=== PATIENT | male | born 1940 | race Caucasian/White ===

== ENCOUNTER 2018-12-17 21:53 | Inpatient (IN) | payer MEDICARE, MEDICAID ==
[2018-12-17] MEDS ORDERED: Sodium Chloride 0.9% 1,000 ML IV ONE (22:19)
[2018-12-17] MEDS ORDERED: Sodium Chloride 0.9% 500 ML IV ONE (22:19)
--- NOTE | 2018-12-17 22:19 | C.PDOC ---
History Of Present Illness Pt presents with 2 days of constipation, fever, chill, abdominal pain. Has seen his pmd earlier today and received a shot of levaquin in the office. Dull , aching cramping discomfort. No chest pain or shortness of breath Time Seen by Provider: 12/17/18 22:18 Chief Complaint (Nursing): Abdominal Pain History Per: Patient History/Exam Limitations: no limitations Onset/Duration Of Symptoms: Days Current Symptoms Are (Timing): Worse Context: Other Severity: Severe Pain Scale Rating Of: 7 Location Of Pain/Discomfort: Diffuse Radiation Of Pain To:: None Quality Of Discomfort: Sharp, Aching, Cramping Associated Symptoms: Fever, Chills. denies: Nausea Exacerbating Factors: Cough Alleviating Factors: None Last Bowel Movement: Days Ago Recent travel outside of the [place]: No Additional History Per: Family Past Medical History Reviewed: Historical Data, Nursing Documentation, Vital Signs Vital Signs: Last Vital Signs Temp 102.2 F H 12/17/18 22:06 Pulse 140 H 12/17/18 22:06 Resp 26 H 12/17/18 22:06 BP 129/63 12/17/18 22:06 Pulse Ox 94 L 12/17/18 22:06 Primary Care Provider: Elias Steven R - Medical History PMH: Benign Prostatic Hyperplasia (ON FLOMAX), HTN Denies: Chronic Kidney Disease Family History: States: No Known Family Hx - Social History Hx Alcohol Use: No Hx Substance Use: No - Immunization History Hx Tetanus Toxoid Vaccination: No Hx Influenza Vaccination: No Hx Pneumococcal Vaccination: No Review Of Systems Constitutional: Positive for: Fever, Chills Eyes: Negative for: Vision Change ENT: Negative for: Throat Pain Cardiovascular: Negative for: Chest Pain Respiratory: Positive for: Cough Gastrointestinal: Positive for: Abdominal Pain, Constipation. Negative for: Nausea, Vomiting Genitourinary: Negative for: Dysuria Musculoskeletal: Negative for: Back Pain Skin: Negative for: Rash Neurological: Negative for: Weakness Psych: Negative for: Anxiety Physical Exam - Physical Exam Appears: In Acute Distress Skin: Warm, Dry Head: Normacephalic Eye(s): bilateral: Normal Inspection Oral Mucosa: Dry Neck: Supple Chest: Symmetrical Cardiovascular: Rhythm Regular (tachy) Respiratory: No Rales, Rhonchi, No Wheezing Gastrointestinal/Abdominal: Bowel Sounds (tympanic), Soft, Tenderness, Distention, No Guarding, No Rebound Back: No CVA Tenderness Extremity: No Tenderness Extremity: Bilateral: Atraumatic, Normal Color And Temperature, Normal ROM Pulses: Left Dorsalis Pedis: Normal, Right Dorsalis Pedis: Normal Neurological/Psych: Oriented x3 Gait: Unable To Assess ED Course And Treatment - Laboratory Results Result Diagrams: 12/17/18 22:28 12/17/18 22:28 ECG: Interpreted By Me, Viewed By Me ECG Rhythm: Sinus Tachycardia (123), Nonspecific Changes (lvh) O2 Sat by Pulse Oximetry: 94 Pulse Ox Interpretation: Normal - Radiology CXR: Interpreted by Me, Viewed By Me CXR Interpretation: No: Infiltrates, Fracture, Pnemothorax Progress Note: 30cc/kg not given due to his chf. 1:25 am pt went to the bathroom. upon return , bp decreased. 500 cc nss bolus started. No cp or sob. Probably vaso-vagal. Awaiting ct scan results. spoke with dr burgos-bunch breaker - will come and see the pt Central Line Placement - Central Line Placement Central Line Placement: Right: Femoral The Area Was Thoroughly Prepared With: Betadine, Chlorhexidine Area Was Locally Anesthetized With: Lidocaine 1% Procedure: Triple Lumen, Placed Using Standard Seldinger Technique, Catheter Was Sewn Into Place, Sterile Dressing Placed Over Line, Procedure Tolerated Well Critical Care Time - Critical Care Note Total Time (in mins): 30 Documented critical care: time excludes all time spent performing seperately billable procedures. Disposition Discussed With : Dustin Randall Comment: accepted the pt on his service and took over the care at 2 AM Doctor Will See Patient In The: ED Counseled Patient/Family Regarding: Studies Performed, Diagnosis - Disposition Disposition: HOSPITALIZED Disposition Time: 22:18 Condition: CRITICAL Forms: [facility] (Emirati) - POA Present On Arrival: Poor Glycemic Control - Clinical Impression Clinical Impression: Abdominal pain, Constipation, Ileus, Sepsis
[2018-12-17 22:37] LABS: BASO % 0.1 % (0.0-2.0); EOS % 0.1 % (0.0-4.0); HEMOGLOBIN 13.2 g/dL (12.0-18.0); LYMPH # 1.1 K/uL (1.0-4.3); LYMPH % 5.2 % (20.0-40.0); MEAN CELL VOLUME 82.5 fL (80.0-94.0); MEAN CORPUSCULAR HEMOGLOBIN 27.1 pg (27.0-31.0); MEAN CORPUSCULAR HGB CONC 32.8 g/dL (33.0-37.0); MEAN PLATELET VOLUME 12.8 fL (7.2-11.7); MONO # 0.3 K/uL (0.0-0.8); MONO % 1.3 % (0.0-10.0); NEUT # 20.4 K/uL (1.8-7.0); NEUT % 93.3 % (50.0-75.0); NRBC % 0.1 % (0.0-2.0); PLATELET COUNT 101 K/uL (130-400); RBC 4.88 Mil/uL (4.40-5.90); RED CELL DISTRIBUTION WIDTH 13.8 % (11.5-14.5)
[2018-12-17 22:50] LABS: ALB/GLOB RATIO 1.3 (1.0-2.1); CALCIUM 10.2 mg/dl (8.6-10.4)
[2018-12-17 23:00] LABS: TROPONIN I 0.08 ng/mL (0.00-0.120)
[2018-12-17 23:04] LABS: WHITE BLOOD COUNT 21.9 K/uL (4.8-10.8)
[2018-12-17 23:23] LABS: INR 1.2; PARTIAL THROMBOPLASTIN TIME 29.6 SECONDS (21-34); PROTHROMBIN TIME 13.3 SECONDS (9.7-12.2)
[2018-12-17 23:32] LABS: BANDS 1 % (0-2); LYMPHOCYTE 4 % (20-40); MONOCYTE 1 % (0-10); NEUTROPHIL 94 % (50-75); TOTAL CELLS COUNTED 100
[2018-12-17 23:33] LABS: PLATELET ESTIMATE SLIGHTLY DECREASED (NORMAL)
[2018-12-17 23:51] LABS: VENOUS BLOOD GAS BASE EXCESS -5.3 mmol/L (0.0-2.0); VENOUS BLOOD GAS PCO2 33 mmHg (40-60); VENOUS BLOOD GAS PO2 29 mm/Hg (30-55); VENOUS BLOOD PH 7.37 (7.32-7.43)
[2018-12-18] MEDS ORDERED: Iodixanol 320 MG/ML 100 ML BOTTLE IV ONE (00:31)
[2018-12-18] MEDS ORDERED: Piperacillin/Tazobact 3.375 gm 100 ML IVPB STA (01:30)
[2018-12-18] MEDS ORDERED: Vancomycin 1 GM 1 GM/250 ML BAG IVPB STA (01:31)
[2018-12-18] MEDS ORDERED: Piperacillin/Tazobact 3.375 gm 100 ML IVPB ONE (01:40)
[2018-12-18] MEDS ORDERED: Lidocaine 2% MPF (5 ml) Inj ONE (01:46)
[2018-12-18] MEDS ORDERED: Vancomycin 1 GM 1 GM/250 ML BAG IVPB ONE (02:21)
--- NOTE | 2018-12-18 02:29 | CP.CCUPN ---
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, HTN, BPH came to ER with 2 days of constipation, fever, chill, abdominal pain, no chest pain events reviewed CCU Objective - Vital Signs / Intake & Output Vital Signs (Last 4 hours): Vital Signs Temp Pulse Resp BP Pulse Ox 12/18/18 02:04 94 L 12/18/18 01:40 97 H 18 65/29 L 95 12/17/18 23:19 98.3 F 12/17/18 23:06 98.3 F 113 H 18 130/69 98 Intake and Output (Last 8hrs): Intake & Output 12/17/18 12/17/18 12/18/18 14:59 22:59 06:59 Weight 170 lb - Physical Exam Head: Positive for: Atraumatic, Normocephalic Pupils: Positive for: PERRL Conjunctiva: Positive for: Normal Ears: Positive for: Normal Mouth: Positive for: Moist Mucous Membranes Nose (External): Positive for: Atraumatic Neck: Positive for: Normal Range of Motion Respiratory/Chest: Positive for: Clear to Auscultation Cardiovascular: Positive for: Regular Rate and Rhythm Abdomen: Positive for: Distention (soft), Other Upper Extremity: Positive for: Normal Inspection, Capillary Refill < 2s Lower Extremity: Positive for: Normal Inspection Skin: Positive for: Warm Psychiatric: Positive for: Alert - Medications Active Medications: Active Medications Generic Name Dose Route Start Last Admin Trade Name Freq PRN Reason Stop Dose Admin Vancomycin HCl 1 gm in 250 mls @ 166.667 mls/hr 12/18/18 01:31 Vancomycin 1gm In Normal Saline Addvantage IVPB 12/18/18 03:00 STAT STA Protocol Norepinephrine Bitartrate 8 mg 258 mls @ 7.74 mls/hr 12/18/18 01:39 12/18/18 01:40 / Dextrose IV 7.74 mls/hr .Q24H PRN Administration TITRATE PER MD ORDER Protocol 4 MCG/MIN - Patient Studies Lab Studies: Lab Studies 12/18/18 12/17/18 12/17/18 Range/Units 01:35 23:45 22:39 WBC (4.8-10.8) K/uL RBC (4.40-5.90) Mil/uL Hgb (12.0-18.0) g/dL Hct (35.0-51.0) % MCV (80.0-94.0) fL MCH (27.0-31.0) pg MCHC (33.0-37.0) g/dL RDW (11.5-14.5) % Plt Count (130-400) K/uL MPV (7.2-11.7) fL Neut % (Auto) (50.0-75.0) % Lymph % (Auto) (20.0-40.0) % [place] % (Auto) (0.0-10.0) % Eos % (Auto) (0.0-4.0) % Baso % (Auto) (0.0-2.0) % Neut # (Auto) (1.8-7.0) K/uL Lymph # (Auto) (1.0-4.3) K/uL [place] # (Auto) (0.0-0.8) K/uL Eos # (Auto) (0.0-0.7) K/uL Baso # (Auto) (0.0-0.2) K/uL Neutrophils % (Manual) (50-75) % Band Neutrophils % (0-2) % Lymphocytes % (Manual) (20-40) % Monocytes % (Manual) (0-10) % Platelet Estimate (NORMAL) RBC Morphology PT (9.7-12.2) SECONDS INR APTT (21-34) SECONDS pO2 29 L (30-55) mm/Hg VBG pH 7.37 (7.32-7.43) VBG pCO2 33 L (40-60) mmHg VBG HCO3 19.6 mmol/L VBG Total CO2 20.1 L (22-28) mmol/L VBG O2 Sat (Calc) 57.4 (40-65) % VBG Base Excess -5.3 L (0.0-2.0) mmol/L VBG Potassium 3.7 (3.6-5.2) mmol/L Glucose 328 H (75-110) mg/dl Lactate 5.8 H* (0.7-2.1) mmol/L Crit Value Called To Dr goodman Crit Value Called By Lev marion/rt Crit Value Read Back Y Blood Gas Notified Time 2355 Sodium 138.0 (132-148) mmol/L Potassium (3.6-5.2) mmol/L Chloride 95.0 L (98-107) mmol/L Carbon Dioxide (22-30) mmol/L Anion Gap (10-20) BUN (9-20) mg/dL Creatinine (0.8-1.5) mg/dL Est GFR ( Amer) Est GFR (Non-Af Amer) POC Glucose (mg/dL) 294 H (65-110) mg/dL Random Glucose (75-110) mg/dL Lactic Acid 3.3 H (0.7-2.1) mmol/L Calcium (8.6-10.4) mg/dl Total Bilirubin (0.2-1.3) mg/dL AST (17-59) U/L ALT (21-72) U/L Alkaline Phosphatase (38-126) U/L Troponin I (0.00-0.120) ng/mL NT-Pro-B Natriuret Pep (0-900) pg/mL Total Protein (6.3-8.3) g/dL Albumin (3.5-5.0) g/dL Globulin (2.2-3.9) gm/dL Albumin/Globulin Ratio (1.0-2.1) Lipase (23-300) U/L Venous Blood Potassium 3.7 (3.6-5.2) mmol/L 12/17/18 12/17/18 12/17/18 Range/Units 22:28 22:28 22:28 WBC 21.9 H (4.8-10.8) K/uL RBC 4.88 (4.40-5.90) Mil/uL Hgb 13.2 (12.0-18.0) g/dL Hct 40.3 (35.0-51.0) % MCV 82.5 (80.0-94.0) fL MCH 27.1 (27.0-31.0) pg MCHC 32.8 L (33.0-37.0) g/dL RDW 13.8 (11.5-14.5) % Plt Count 101 L (130-400) K/uL MPV 12.8 H (7.2-11.7) fL Neut % (Auto) 93.3 H (50.0-75.0) % Lymph % (Auto) 5.2 L (20.0-40.0) % [place] % (Auto) 1.3 (0.0-10.0) % Eos % (Auto) 0.1 (0.0-4.0) % Baso % (Auto) 0.1 (0.0-2.0) % Neut # (Auto) 20.4 H (1.8-7.0) K/uL Lymph # (Auto) 1.1 (1.0-4.3) K/uL [place] # (Auto) 0.3 (0.0-0.8) K/uL Eos # (Auto) 0.0 (0.0-0.7) K/uL Baso # (Auto) 0.0 (0.0-0.2) K/uL Neutrophils % (Manual) 94 H (50-75) % Band Neutrophils % 1 (0-2) % Lymphocytes % (Manual) 4 L (20-40) % Monocytes % (Manual) 1 (0-10) % Platelet Estimate Slightly decreased L (NORMAL) RBC Morphology Normal PT 13.3 H (9.7-12.2) SECONDS INR 1.2 APTT 29.6 (21-34) SECONDS pO2 (30-55) mm/Hg VBG pH (7.32-7.43) VBG pCO2 (40-60) mmHg VBG HCO3 mmol/L VBG Total CO2 (22-28) mmol/L VBG O2 Sat (Calc) (40-65) % VBG Base Excess (0.0-2.0) mmol/L VBG Potassium (3.6-5.2) mmol/L Glucose (75-110) mg/dl Lactate (0.7-2.1) mmol/L Crit Value Called To Crit Value Called By Crit Value Read Back Blood Gas Notified Time Sodium 134 (132-148) mmol/L Potassium 3.3 L (3.6-5.2) mmol/L Chloride 100 (98-107) mmol/L Carbon Dioxide 20 L (22-30) mmol/L Anion Gap 18 (10-20) BUN 26 H (9-20) mg/dL Creatinine 1.5 (0.8-1.5) mg/dL Est GFR ( Amer) 55 Est GFR (Non-Af Amer) 46 POC Glucose (mg/dL) (65-110) mg/dL Random Glucose 328 H (75-110) mg/dL Lactic Acid (0.7-2.1) mmol/L Calcium 10.2 (8.6-10.4) mg/dl Total Bilirubin 0.6 (0.2-1.3) mg/dL AST 44 (17-59) U/L ALT 24 (21-72) U/L Alkaline Phosphatase 150 H (38-126) U/L Troponin I 0.0800 (0.00-0.120) ng/mL NT-Pro-B Natriuret Pep 1960 H (0-900) pg/mL Total Protein 7.1 (6.3-8.3) g/dL Albumin 4.0 (3.5-5.0) g/dL Globulin 3.1 (2.2-3.9) gm/dL Albumin/Globulin Ratio 1.3 (1.0-2.1) Lipase 177 (23-300) U/L Venous Blood Potassium (3.6-5.2) mmol/L Laboratory Results - last 24 hr 12/17/18 12/17/18 12/17/18 22:28 22:28 22:28 WBC 21.9 H RBC 4.88 Hgb 13.2 Hct 40.3 MCV 82.5 MCH 27.1 MCHC 32.8 L RDW 13.8 Plt Count 101 L MPV 12.8 H Neut % (Auto) 93.3 H Lymph % (Auto) 5.2 L [place] % (Auto) 1.3 Eos % (Auto) 0.1 Baso % (Auto) 0.1 Neut # (Auto) 20.4 H Lymph # (Auto) 1.1 [place] # (Auto) 0.3 Eos # (Auto) 0.0 Baso # (Auto) 0.0 Neutrophils % (Manual) 94 H Band Neutrophils % 1 Lymphocytes % (Manual) 4 L Monocytes % (Manual) 1 Platelet Estimate Slightly decreased L RBC Morphology Normal PT 13.3 H INR 1.2 APTT 29.6 pO2 VBG pH VBG pCO2 VBG HCO3 VBG Total CO2 VBG O2 Sat (Calc) VBG Base Excess VBG Potassium Glucose Lactate Crit Value Called To Crit Value Called By Crit Value Read Back Blood Gas Notified Time Sodium 134 Potassium 3.3 L Chloride 100 Carbon Dioxide 20 L Anion Gap 18 BUN 26 H Creatinine 1.5 Est GFR ( Amer) 55 Est GFR (Non-Af Amer) 46 POC Glucose (mg/dL) Random Glucose 328 H Lactic Acid Calcium 10.2 Total Bilirubin 0.6 AST 44 ALT 24 Alkaline Phosphatase 150 H Troponin I 0.0800 NT-Pro-B Natriuret Pep 1960 H Total Protein 7.1 Albumin 4.0 Globulin 3.1 Albumin/Globulin Ratio 1.3 Lipase 177 Venous Blood Potassium 12/17/18 12/17/18 12/18/18 22:39 23:45 01:35 WBC RBC Hgb Hct MCV MCH MCHC RDW Plt Count MPV Neut % (Auto) Lymph % (Auto) [place] % (Auto) Eos % (Auto) Baso % (Auto) Neut # (Auto) Lymph # (Auto) [place] # (Auto) Eos # (Auto) Baso # (Auto) Neutrophils % (Manual) Band Neutrophils % Lymphocytes % (Manual) Monocytes % (Manual) Platelet Estimate RBC Morphology PT INR APTT pO2 29 L VBG pH 7.37 VBG pCO2 33 L VBG HCO3 19.6 VBG Total CO2 20.1 L VBG O2 Sat (Calc) 57.4 VBG Base Excess -5.3 L VBG Potassium 3.7 Glucose 328 H Lactate 5.8 H* Crit Value Called To Dr goodman Crit Value Called By Lev marion/rt Crit Value Read Back Y Blood Gas Notified Time 2357 Sodium 138.0 Potassium Chloride 95.0 L Carbon Dioxide Anion Gap BUN Creatinine Est GFR ( Amer) Est GFR (Non-Af Amer) POC Glucose (mg/dL) 294 H Random Glucose Lactic Acid 3.3 H Calcium Total Bilirubin AST ALT Alkaline Phosphatase Troponin I NT-Pro-B Natriuret Pep Total Protein Albumin Globulin Albumin/Globulin Ratio Lipase Venous Blood Potassium 3.7 EKG/Cardiology Studies: Cardiology / EKG Studies 12/17/18 22:19 ELECTROCARDIOGRAM Stat Comment: Mode Of Transportation: BED Reason For Exam: abd pain Fingerstick Blood Sugar Results: 294 Assessment/Plan - Assessment and Plan (Free Text) Assessment: A/P ?Sepsis, ilieus, h/o DM, ?CHF, BPH - Rojas culture - IV fluid - Antibiotics - Pressors as needed - GI/Surgery consult as per PND - DVT prophylaxis critical care 35 min
[2018-12-18] MEDS ORDERED: Sodium Chloride 0.9% 500 ML IV ONE (02:44)
[2018-12-18] MEDS: Piperacillin/Tazobact 3.375 GM in Sodium Chloride 100 ML IVPB SCH ×3 (03:44→18:10)
[2018-12-18] MEDS ORDERED: Sodium Chloride 0.9% 1,000 ML IV SCH (03:45)
[2018-12-18 04:18] LABS: BASO # 0.1 K/uL (0.0-0.2); BASO % 0.3 % (0.0-2.0); EOS % 0.1 % (0.0-4.0); LYMPH % 6.6 % (20.0-40.0); MEAN CELL VOLUME 84.6 fL (80.0-94.0); MEAN CORPUSCULAR HEMOGLOBIN 26.7 pg (27.0-31.0); MEAN CORPUSCULAR HGB CONC 31.5 g/dL (33.0-37.0); MEAN PLATELET VOLUME 12.1 fL (7.2-11.7); MONO # 1.4 K/uL (0.0-0.8); MONO % 4.5 % (0.0-10.0); NEUT # 26.7 K/uL (1.8-7.0); NEUT % 88.5 % (50.0-75.0); PLATELET COUNT 69 K/uL (130-400); RBC 4.09 Mil/uL (4.40-5.90); RED CELL DISTRIBUTION WIDTH 13.9 % (11.5-14.5); WHITE BLOOD COUNT 30.1 K/uL (4.8-10.8)
[2018-12-18 04:22] LABS: HEMOGLOBIN 10.9 g/dL (12.0-18.0)
[2018-12-18 04:34] LABS: ALB/GLOB RATIO 1.1 (1.0-2.1); ALBUMIN 2.7 g/dL (3.5-5.0); CALCIUM 7.7 mg/dl (8.6-10.4)
[2018-12-18] MEDS: Magnesium Sulfate 1 gm in D5W 1 GM/100 ML BAG IVPB SCH (04:52)
[2018-12-18 05:18] LABS: BANDS 3 % (0-2); LYMPHOCYTE 8 % (20-40); MONOCYTE 6 % (0-10); NEUTROPHIL 83 % (50-75); PLATELET ESTIMATE NORMAL (NORMAL); TOTAL CELLS COUNTED 100
--- NOTE | 2018-12-18 07:56 | CP.PCM.CON ---
<Elizabeth Huitron - Last Filed: 12/18/18 16:10> History of Present Illness - History of Present Illness History of Present Illness: ICU CONSULT NOTE FOR DR. FELIPE HUITRON PGY1 78 y/o M with PMHx of DM2, HTN, BPH, hypotension, osteoporosis, vertigo presented to ED from nursing home home after he had complaints of abdominal pain for several days. He reports that he had taken miralax powder and had a large bowel movement prior to arrival at ED. He also reports he has been following with ENT doctor and had received steroid injection for R ear tinnitus. He was brought to ICU after code sepsis was called in ED as pt had WBC 21, lactate 5.8 and was hypotensive requiring levophed support. He had received IVF, empiric antibiotics. Upon interview, he reports R sided "water in ear." He reports feeling fevers earlier on but denies current fevers. He reports his abdominal pain had resolved after he had miralax. He otherwise denies ROS PMH: DM2, HTN, BPH, hypotension, osteoporosis, vertigo All: NKDA PSH: b/l cataract surgery SH: Denies tobacco, ETOH, illicit drug use FH: non-contributory Hosp: Lives at [facility] Meds: Levofloxacin 250mg(R ear pain) Metformin 1000mg, Polyethylene glycol powder,, multivitamin OTC, Aspirin 81mg, Oyster Shell D Ca 500-200 IU, Amlodipine 2.5mg, Tamsulosin 0.4mg, Metoprolol succinate 50mg, Alendronate 70mg, Meclizine 12.5, Losartan/HCTZ 100-25 mg, Glimepiride 4mg Pharmacy: [facility] Review of Systems - Review of Systems Review of Systems: per HPI Past Patient History - Past Social History Smoking Status: Never Smoked - CARDIAC Hx Cardiac Disorders: Yes Hx Hypertension: Yes - PULMONARY Hx Respiratory Disorders: Yes Other/Comment: POOR HISTORIAN -"LUNG PROBLEMS " - NEUROLOGICAL Hx Neurological Disorder: No - HEENT Hx HEENT Problems: Yes Other/Comment: Eyeglasses for reading - RENAL Hx Chronic Kidney Disease: No - ENDOCRINE/METABOLIC Hx Endocrine Disorders: Yes Hx Diabetes Mellitus Type 2: Yes - HEMATOLOGICAL/ONCOLOGICAL Hx Blood Disorders: No - INTEGUMENTARY Hx Dermatological Problems: No - MUSCULOSKELETAL/RHEUMATOLOGICAL Hx Musculoskeletal Disorders: No Hx Falls: No - GASTROINTESTINAL Hx Gastrointestinal Disorders: Yes Other/Comment: TREATED FOR BOWEL OBSTRUCTION. - GENITOURINARY/GYNECOLOGICAL Hx Genitourinary Disorders: Yes Hx Prostate Problems: Yes - PSYCHIATRIC Hx Psychophysiologic Disorder: No - SURGICAL HISTORY Hx Surgeries: Yes Hx Cataract Extraction: Yes (bilateral) Hx Orthopedic Surgery: Yes (L leg) - ANESTHESIA Hx Anesthesia: Yes Hx Anesthesia Reactions: No Hx Malignant Hyperthermia: No Has any member of the family had a problem w/ anesthesia?: No Meds Allergies/Adverse Reactions: Allergies Allergy/AdvReac Type Severity Reaction Status Date / Time No Known Allergies Allergy Verified 12/17/18 22:14 - Medications Medications: Current Medications Enoxaparin Sodium (Lovenox) 40 mg SC DAILY RAJ Norepinephrine Bitartrate 8 mg (/ Dextrose) 258 mls @ 7.74 mls/hr IV .Q24H PRN; Protocol PRN Reason: TITRATE PER MD ORDER Last Titration: 12/18/18 07:41 Dose: 5 mcg/min, 9.68 mls/hr Piperacillin Sod/Tazobactam (Sod 3.375 gm/ Sodium Chloride) 100 mls @ 200 mls/hr IVPB Q8H RAJ; Protocol Last Admin: 12/18/18 03:44 Dose: Not Given Sodium Chloride (Sodium Chloride 0.9%) 1,000 mls @ 50 mls/hr IV .Q20H RAJ Last Admin: 12/18/18 04:00 Dose: 50 mls/hr Physical Exam - Constitutional Appears: Well, Non-toxic, No Acute Distress - Head Exam Head Exam: NORMAL INSPECTION, NORMOCEPHALIC - Eye Exam Eye Exam: EOMI, Normal appearance - ENT Exam ENT Exam: Mucous Membranes Dry, Normal Exam - Neck Exam Neck exam: Positive for: Normal Inspection - Respiratory Exam Respiratory Exam: Clear to Auscultation Bilateral, NORMAL BREATHING PATTERN - Cardiovascular Exam Cardiovascular Exam: REGULAR RHYTHM, +S1, +S2 - GI/Abdominal Exam GI & Abdominal Exam: Normal Bowel Sounds, Soft. absent: Distended, Firm, Guarding - Extremities Exam Extremities exam: Positive for: normal inspection. Negative for: calf tenderness - Back Exam Back exam: NORMAL INSPECTION - Neurological Exam Neurological exam: Alert, Oriented x3 - Psychiatric Exam Psychiatric exam: Normal Affect, Normal Mood - Skin Skin Exam: Dry, Intact, Warm Results - Vital Signs Recent Vital Signs: Last Vital Signs Temp 97.8 F 12/18/18 04:55 Pulse 84 12/18/18 06:15 Resp 26 H 12/18/18 06:15 BP 105/52 L 12/18/18 06:15 Pulse Ox 95 12/18/18 06:15 - Labs Result Diagrams: 12/18/18 15:00 12/18/18 04:09 Labs: Laboratory Results - last 24 hr 12/17/18 12/17/18 12/17/18 22:28 22:28 22:28 WBC 21.9 H RBC 4.88 Hgb 13.2 Hct 40.3 MCV 82.5 MCH 27.1 MCHC 32.8 L RDW 13.8 Plt Count 101 L MPV 12.8 H Neut % (Auto) 93.3 H Lymph % (Auto) 5.2 L [place] % (Auto) 1.3 Eos % (Auto) 0.1 Baso % (Auto) 0.1 Neut # (Auto) 20.4 H Lymph # (Auto) 1.1 [place] # (Auto) 0.3 Eos # (Auto) 0.0 Baso # (Auto) 0.0 Neutrophils % (Manual) 94 H Band Neutrophils % 1 Lymphocytes % (Manual) 4 L Monocytes % (Manual) 1 Platelet Estimate Slightly decreased L RBC Morphology Normal PT 13.3 H INR 1.2 APTT 29.6 pO2 VBG pH VBG pCO2 VBG HCO3 VBG Total CO2 VBG O2 Sat (Calc) VBG Base Excess VBG Potassium Glucose Lactate Crit Value Called To Crit Value Called By Crit Value Read Back Blood Gas Notified Time Sodium 134 Potassium 3.3 L Chloride 100 Carbon Dioxide 20 L Anion Gap 18 BUN 26 H Creatinine 1.5 Est GFR ( Amer) 55 Est GFR (Non-Af Amer) 46 POC Glucose (mg/dL) Random Glucose 328 H Lactic Acid Calcium 10.2 Phosphorus Magnesium Total Bilirubin 0.6 AST 44 ALT 24 Alkaline Phosphatase 150 H Troponin I 0.0800 NT-Pro-B Natriuret Pep 1960 H Total Protein 7.1 Albumin 4.0 Globulin 3.1 Albumin/Globulin Ratio 1.3 Lipase 177 Venous Blood Potassium 12/17/18 12/17/18 12/18/18 22:39 23:45 01:35 WBC RBC Hgb Hct MCV MCH MCHC RDW Plt Count MPV Neut % (Auto) Lymph % (Auto) [place] % (Auto) Eos % (Auto) Baso % (Auto) Neut # (Auto) Lymph # (Auto) [place] # (Auto) Eos # (Auto) Baso # (Auto) Neutrophils % (Manual) Band Neutrophils % Lymphocytes % (Manual) Monocytes % (Manual) Platelet Estimate RBC Morphology PT INR APTT pO2 29 L VBG pH 7.37 VBG pCO2 33 L VBG HCO3 19.6 VBG Total CO2 20.1 L VBG O2 Sat (Calc) 57.4 VBG Base Excess -5.3 L VBG Potassium 3.7 Glucose 328 H Lactate 5.8 H* Crit Value Called To Dr goodman Crit Value Called By Lev marion/rt Crit Value Read Back Y Blood Gas Notified Time 2355 Sodium 138.0 Potassium Chloride 95.0 L Carbon Dioxide Anion Gap BUN Creatinine Est GFR ( Amer) Est GFR (Non-Af Amer) POC Glucose (mg/dL) 294 H Random Glucose Lactic Acid 3.3 H Calcium Phosphorus Magnesium Total Bilirubin AST ALT Alkaline Phosphatase Troponin I NT-Pro-B Natriuret Pep Total Protein Albumin Globulin Albumin/Globulin Ratio Lipase Venous Blood Potassium 3.7 12/18/18 12/18/18 12/18/18 04:09 04:09 04:09 WBC 30.1 H RBC 4.09 L Hgb 10.9 L D Hct 34.6 L MCV 84.6 D MCH 26.7 L MCHC 31.5 L RDW 13.9 Plt Count 69 L D MPV 12.1 H Neut % (Auto) 88.5 H Lymph % (Auto) 6.6 L [place] % (Auto) 4.5 Eos % (Auto) 0.1 Baso % (Auto) 0.3 Neut # (Auto) 26.7 H Lymph # (Auto) 2.0 [place] # (Auto) 1.4 H Eos # (Auto) 0.0 Baso # (Auto) 0.1 Neutrophils % (Manual) 83 H Band Neutrophils % 3 H Lymphocytes % (Manual) 8 L Monocytes % (Manual) 6 Platelet Estimate Normal RBC Morphology PT INR APTT pO2 VBG pH VBG pCO2 VBG HCO3 VBG Total CO2 VBG O2 Sat (Calc) VBG Base Excess VBG Potassium Glucose Lactate Crit Value Called To Crit Value Called By Crit Value Read Back Blood Gas Notified Time Sodium 135 Potassium 3.8 Chloride 108 H Carbon Dioxide 19 L Anion Gap 13 BUN 24 H Creatinine 1.6 H Est GFR ( Amer) 51 Est GFR (Non-Af Amer) 42 POC Glucose (mg/dL) Random Glucose 337 H Lactic Acid 1.7 Calcium 7.7 L Phosphorus 2.3 L Magnesium 1.5 L Total Bilirubin 0.7 AST 36 ALT 40 Alkaline Phosphatase 100 Troponin I NT-Pro-B Natriuret Pep Total Protein 5.1 L Albumin 2.7 L D Globulin 2.4 Albumin/Globulin Ratio 1.1 Lipase Venous Blood Potassium Assessment & Plan - Assessment and Plan (Free Text) Assessment: 78M with PMH DM2, HTN, BPH, hypotension, osteoporosis, vertigo Plan: ID Septic shock -WBC: 30-increased from 21.9, + Temp 102.2 + hypotension requiring levophed support + Likely 2/2 UTI as source -U/A showing 3+ LE & 178 WBC in urine. Lactate downtrending 5.8 -> 3.3 -> 1.7 -Pt now afebrile. HR <90 -s/p 3L IVF bolus, 30cc/kg per surviving sepsis campaign -continue maintenance IVF @50mls/hr -continue therapeutic zosyn coverage -f/u blood/urine cultures for sensitivities, f/u procalcitonin -Pt reports passing gas and had bowel movement today. Will order stool for C.Diff R ear tinnitus -Pt has been followed by Dr. Kaufman in outpatient setting, will consult for recs -He has been receiving steroids injections, and has been tapered to oral steroids, likely contributing to leukocytosis -Recently had MRI head @[facility]. Will obtain report Neuro: -AxO x 3 -GCS 15 -Reorient frequently CV: -Currently normotensive. Was on levophed @4mcg/min overnight, not requiring vasopressor support currently -BNP 1959. CXR: revealing mild vascular congestion. Will obtain echocardiogram. Monitor for signs of fluid overload -Maintain MAP >65 GI: -No abdominal pain. Reports passing gas and stool -CT A/P 12/18: fluid filled stomach, probably mild gastroparesis. Fluid-filled colon. Likely ileus -Will start carb consistent diet Pre-renal azotemia -BUN/Cr: 24/1.6 -likely in the setting of septic shock -will continue IVF@50mls/hr Heme Thrombocytopenia -Plt 69--101 -Likely in the setting of septic shock -will treat underlying shock. repeat CBC this pm Endocrine DM2 -BS in 300s. Pt takes oral antihypoglycemics at home -Will start sliding scale insulin DVT/GI: SCD(no hep d/t thrombocytopenia)/Protonix Case reviewed with attending physician, Dr. Felipe Huitron PGY1 <Royal Wang - Last Filed: 12/18/18 18:47> Meds - Medications Medications: Current Medications Norepinephrine Bitartrate 8 mg (/ Dextrose) 258 mls @ 7.74 mls/hr IV .Q24H PRN; Protocol PRN Reason: TITRATE PER MD ORDER Last Titration: 12/18/18 10:30 Dose: 0 mcg/min, 0 mls/hr Piperacillin Sod/Tazobactam (Sod 3.375 gm/ Sodium Chloride) 100 mls @ 200 mls/hr IVPB Q8H RAJ; Protocol Last Admin: 12/18/18 18:10 Dose: 200 mls/hr Insulin Human Regular (Novolin R) 0 unit SC Q6 RAJ; Protocol Last Admin: 12/18/18 18:10 Dose: 3 u Pantoprazole Sodium (Protonix Inj) 40 mg IVP DAILY RAJ Results - Vital Signs Recent Vital Signs: Last Vital Signs Temp 97.3 F L 12/18/18 08:00 Pulse 100 H 12/18/18 17:01 Resp 11 L 12/18/18 17:01 BP 125/61 12/18/18 17:01 Pulse Ox 99 12/18/18 17:01 - Labs Result Diagrams: 12/18/18 15:00 12/18/18 04:09 Labs: Laboratory Results - last 24 hr 12/17/18 12/17/18 12/17/18 22:28 22:28 22:28 WBC 21.9 H RBC 4.88 Hgb 13.2 Hct 40.3 MCV 82.5 MCH 27.1 MCHC 32.8 L RDW 13.8 Plt Count 101 L MPV 12.8 H Neut % (Auto) 93.3 H Lymph % (Auto) 5.2 L [place] % (Auto) 1.3 Eos % (Auto) 0.1 Baso % (Auto) 0.1 Neut # (Auto) 20.4 H Lymph # (Auto) 1.1 [place] # (Auto) 0.3 Eos # (Auto) 0.0 Baso # (Auto) 0.0 Neutrophils % (Manual) 94 H Band Neutrophils % 1 Lymphocytes % (Manual) 4 L Monocytes % (Manual) 1 Platelet Estimate Slightly decreased L RBC Morphology Normal PT 13.3 H INR 1.2 APTT 29.6 pO2 VBG pH VBG pCO2 VBG HCO3 VBG Total CO2 VBG O2 Sat (Calc) VBG Base Excess VBG Potassium Glucose Lactate Crit Value Called To Crit Value Called By Crit Value Read Back Blood Gas Notified Time Sodium 134 Potassium 3.3 L Chloride 100 Carbon Dioxide 20 L Anion Gap 18 BUN 26 H Creatinine 1.5 Est GFR ( Amer) 55 Est GFR (Non-Af Amer) 46 POC Glucose (mg/dL) Random Glucose 328 H Lactic Acid Calcium 10.2 Phosphorus Magnesium Total Bilirubin 0.6 AST 44 ALT 24 Alkaline Phosphatase 150 H Troponin I 0.0800 NT-Pro-B Natriuret Pep 1960 H Total Protein 7.1 Albumin 4.0 Globulin 3.1 Albumin/Globulin Ratio 1.3 Lipase 177 Procalcitonin Venous Blood Potassium Urine Color Urine Clarity Urine pH Ur Specific [place] Urine Protein Urine Glucose (UA) Urine Ketones Urine Blood Urine Nitrate Urine Bilirubin Urine Urobilinogen Ur Leukocyte Esterase Urine WBC (Auto) Urine RBC (Auto) Ur Squamous Epith Cells Urine Bacteria 12/17/18 12/17/18 12/18/18 22:39 23:45 01:35 WBC RBC Hgb Hct MCV MCH MCHC RDW Plt Count MPV Neut % (Auto) Lymph % (Auto) [place] % (Auto) Eos % (Auto) Baso % (Auto) Neut # (Auto) Lymph # (Auto) [place] # (Auto) Eos # (Auto) Baso # (Auto) Neutrophils % (Manual) Band Neutrophils % Lymphocytes % (Manual) Monocytes % (Manual) Platelet Estimate RBC Morphology PT INR APTT pO2 29 L VBG pH 7.37 VBG pCO2 33 L VBG HCO3 19.6 VBG Total CO2 20.1 L VBG O2 Sat (Calc) 57.4 VBG Base Excess -5.3 L VBG Potassium 3.7 Glucose 328 H Lactate 5.8 H* Crit Value Called To Dr goodman Crit Value Called By Lev marion/rt Crit Value Read Back Y Blood Gas Notified Time 2355 Sodium 138.0 Potassium Chloride 95.0 L Carbon Dioxide Anion Gap BUN Creatinine Est GFR ( Amer) Est GFR (Non-Af Amer) POC Glucose (mg/dL) 294 H Random Glucose Lactic Acid 3.3 H Calcium Phosphorus Magnesium Total Bilirubin AST ALT Alkaline Phosphatase Troponin I NT-Pro-B Natriuret Pep Total Protein Albumin Globulin Albumin/Globulin Ratio Lipase Procalcitonin Venous Blood Potassium 3.7 Urine Color Urine Clarity Urine pH Ur Specific [place] Urine Protein Urine Glucose (UA) Urine Ketones Urine Blood Urine Nitrate Urine Bilirubin Urine Urobilinogen Ur Leukocyte Esterase Urine WBC (Auto) Urine RBC (Auto) Ur Squamous Epith Cells Urine Bacteria 12/18/18 12/18/18 12/18/18 04:09 04:09 04:09 WBC 30.1 H RBC 4.09 L Hgb 10.9 L D Hct 34.6 L MCV 84.6 D MCH 26.7 L MCHC 31.5 L RDW 13.9 Plt Count 69 L D MPV 12.1 H Neut % (Auto) 88.5 H Lymph % (Auto) 6.6 L [place] % (Auto) 4.5 Eos % (Auto) 0.1 Baso % (Auto) 0.3 Neut # (Auto) 26.7 H Lymph # (Auto) 2.0 [place] # (Auto) 1.4 H Eos # (Auto) 0.0 Baso # (Auto) 0.1 Neutrophils % (Manual) 83 H Band Neutrophils % 3 H Lymphocytes % (Manual) 8 L Monocytes % (Manual) 6 Platelet Estimate Normal RBC Morphology PT INR APTT pO2 VBG pH VBG pCO2 VBG HCO3 VBG Total CO2 VBG O2 Sat (Calc) VBG Base Excess VBG Potassium Glucose Lactate Crit Value Called To Crit Value Called By Crit Value Read Back Blood Gas Notified Time Sodium 135 Potassium 3.8 Chloride 108 H Carbon Dioxide 19 L Anion Gap 13 BUN 24 H Creatinine 1.6 H Est GFR ( Amer) 51 Est GFR (Non-Af Amer) 42 POC Glucose (mg/dL) Random Glucose 337 H Lactic Acid 1.7 Calcium 7.7 L Phosphorus 2.3 L Magnesium 1.5 L Total Bilirubin 0.7 AST 36 ALT 40 Alkaline Phosphatase 100 Troponin I NT-Pro-B Natriuret Pep Total Protein 5.1 L Albumin 2.7 L D Globulin 2.4 Albumin/Globulin Ratio 1.1 Lipase Procalcitonin Venous Blood Potassium Urine Color Urine Clarity Urine pH Ur Specific [place] Urine Protein Urine Glucose (UA) Urine Ketones Urine Blood Urine Nitrate Urine Bilirubin Urine Urobilinogen Ur Leukocyte Esterase Urine WBC (Auto) Urine RBC (Auto) Ur Squamous Epith Cells Urine Bacteria 12/18/18 12/18/18 12/18/18 09:21 10:53 15:00 WBC 19.2 H RBC 3.83 L Hgb 10.6 L Hct 31.9 L MCV 83.3 MCH 27.7 MCHC 33.3 RDW 13.8 Plt Count 70 L MPV 12.6 H Neut % (Auto) 89.1 H Lymph % (Auto) 7.5 L [place] % (Auto) 3.0 Eos % (Auto) 0.2 Baso % (Auto) 0.2 Neut # (Auto) 17.1 H Lymph # (Auto) 1.4 [place] # (Auto) 0.6 Eos # (Auto) 0.0 Baso # (Auto) 0.0 Neutrophils % (Manual) 94 H Band Neutrophils % Lymphocytes % (Manual) 3 L Monocytes % (Manual) 3 Platelet Estimate Decreased L RBC Morphology Normal PT INR APTT pO2 VBG pH VBG pCO2 VBG HCO3 VBG Total CO2 VBG O2 Sat (Calc) VBG Base Excess VBG Potassium Glucose Lactate Crit Value Called To Crit Value Called By Crit Value Read Back Blood Gas Notified Time Sodium Potassium Chloride Carbon Dioxide Anion Gap BUN Creatinine Est GFR ( Amer) Est GFR (Non-Af Amer) POC Glucose (mg/dL) Random Glucose Lactic Acid Calcium Phosphorus Magnesium Total Bilirubin AST ALT Alkaline Phosphatase Troponin I NT-Pro-B Natriuret Pep Total Protein Albumin Globulin Albumin/Globulin Ratio Lipase Procalcitonin 18.14 H Venous Blood Potassium Urine Color Yellow Urine Clarity Hazy Urine pH 5.0 Ur Specific [place] 1.038 H Urine Protein Negative Urine Glucose (UA) 3+ H Urine Ketones Negative Urine Blood 2+ H Urine Nitrate Negative Urine Bilirubin Negative Urine Urobilinogen Normal Ur Leukocyte Esterase 3+ H Urine WBC (Auto) 178 H Urine RBC (Auto) 58 H Ur Squamous Epith Cells 1 Urine Bacteria Rare Attending/Attestation - Attestation I have personally seen and examined this patient.: Yes I have fully participated in the care of the patient.: Yes I have reviewed all pertinent clinical information: Yes Notes (Text): 12/18/18 18:45 Patient seen and examined in the intensive care unit. Case discussed with housestaff in the morning rounds. 78-year-old male admitted with hypotension, abdominal pain and elevated lactate level Off pressors now and right femoral catheter removed Blood culture positive for gram positive bacilli Continue Zosyn and patient received vancomycin Seen by ENT and patient had MRI done yesterday at [facility] Glycemic control Follow-up lactate level
[2018-12-18 09:31] LABS: SQUAMOUS EPITHIAL 1 /hpf (0-5); URINE BACTERIA RARE (<OCC); URINE BILIRUBIN NEGATIVE (NEGATIVE); URINE BLOOD 2+ (NEGATIVE); URINE CLARITY Hazy (Clear); URINE COLOR Yellow (YELLOW); URINE GLUCOSE (UA) 3+ mg/dL (Normal); URINE LEUKOCYTE ESTERASE 3+ Leu/uL (Negative); URINE PROTEIN NEGATIVE (NEGATIVE); URINE UROBILINOGEN NORMAL mg/dL (0.2-1.0)
[2018-12-18] MEDS ORDERED: Enoxaparin 40 mg Syringe SC SCH (10:00)
--- NOTE | 2018-12-18 10:57 | RAD ---
Date of service: 12/17/2018 HISTORY: Abdominal pain. COMPARISON: 11/15/2013 TECHNIQUE: 1 view obtained. FINDINGS: LUNGS: Mild venous congestion. Biapical pleural thickening with upper lobe granulomatous changes. Bilateral hilar prominence. Mild patchy increased markings at the left lung base with trace left pleural effusion. PLEURA: As above. CARDIOVASCULAR: Tortuous ectatic aorta with calcification at the aortic knob. Normal cardiac size. No pulmonary vascular congestion. OSSEOUS STRUCTURES: No significant abnormalities. VISUALIZED UPPER ABDOMEN: Normal. OTHER FINDINGS: None. IMPRESSION: Mild venous congestion. Biapical pleural thickening with upper lobe granulomatous changes. Bilateral hilar prominence. Mild patchy increased markings at the left lung base with trace left pleural effusion.
[2018-12-18] MEDS ORDERED: Potassium Phosphate 15 MMOLE in Sodium Chloride 0.9% 250 ML IVPB ONE (11:00)
[2018-12-18] MEDS: (Novolin R) Insulin Human Regular 100 units/ml vial SC SCH ×2 (13:31→18:10)
--- NOTE | 2018-12-18 13:35 | CT ---
Date of service: 12/18/2018 PROCEDURE: CT Abdomen and Pelvis with contrast HISTORY: abd pain COMPARISON: None available TECHNIQUE: Contrast dose: 100 mL Visipaque 320 IV Radiation dose: Total exam DLP = 824.95 mGy-cm. This CT exam was performed using one or more of the following dose reduction techniques: Automated exposure control, adjustment of the mA and/or kV according to patient size, and/or use of iterative reconstruction technique. FINDINGS: LOWER THORAX: Bibasilar atelectasis/infiltrates. No visible pleural effusion or pneumothorax. Partially imaged cardiomegaly. Small hiatal hernia/distal esophageal wall thickening. LIVER: 7 mm right hepatic lobe hypodensity, too small to characterize. Hepatomegaly. GALLBLADDER AND BILE DUCTS: Tiny calcified gallstone. PANCREAS: Unremarkable. SPLEEN: Unremarkable. ADRENALS: Unremarkable. KIDNEYS AND URETERS: The kidneys enhance symmetrically. No hydronephrosis or obstructing calculus identified. 7 mm in 10 mm left renal hypodensities, likely cysts. 19 mm right lower pole renal hypodensity measures less than 10 Hounsfield units consistent with a cyst. VASCULATURE: No aortic aneurysm. Atherosclerotic calcifications present. BOWEL: Stomach is nondistended. Lack of oral contrast limits evaluation for bowel pathology. Bowel loops appear within normal limits of caliber without evidence of obstruction. Nondistended fluid-filled loops of small and large bowel; correlate clinically for diarrheal illness. Nonspecific wall thickening of small bowel loops in the left upper quadrant; correlate clinically for possibility of ileitis. APPENDIX: The appendix is not identified. No secondary signs of acute appendicitis. PERITONEUM: No significant free fluid. No definite free air. LYMPH NODES: No bulky adenopathy identified. BLADDER: Mild diffuse urinary bladder wall thickening. REPRODUCTIVE: The prostate gland measures approximately 4.3 x 5.2 cm and contains calcifications. BONES: Osseous demineralization. Degenerative changes. OTHER FINDINGS: None. IMPRESSION: Bibasilar atelectasis/infiltrates. Partially imaged cardiomegaly. Small hiatal hernia/distal esophageal wall thickening. Too small to characterize right hepatic lobe hypodensity; statistically likely cyst or hemangioma. Hepatomegaly. Tiny calcified gallstone. Bilateral probable renal cysts. Nondistended fluid-filled loops of small and large bowel; correlate clinically for diarrheal illness. Nonspecific wall thickening of small bowel loops in the left upper quadrant; correlate clinically for possibility of ileitis. Enlarged prostate gland which contains calcifications; recommend correlation with PSA. Mild diffuse urinary bladder wall thickening may be exaggerated by under distension; recommend correlation with urinalysis. Preliminary impression was provided by [employer].
[2018-12-18 15:04] LABS: BASO % 0.2 % (0.0-2.0); EOS % 0.2 % (0.0-4.0); HEMOGLOBIN 10.6 g/dL (12.0-18.0); LYMPH # 1.4 K/uL (1.0-4.3); LYMPH % 7.5 % (20.0-40.0); MEAN CELL VOLUME 83.3 fL (80.0-94.0); MEAN CORPUSCULAR HEMOGLOBIN 27.7 pg (27.0-31.0); MEAN CORPUSCULAR HGB CONC 33.3 g/dL (33.0-37.0); MEAN PLATELET VOLUME 12.6 fL (7.2-11.7); MONO # 0.6 K/uL (0.0-0.8); NEUT # 17.1 K/uL (1.8-7.0); NEUT % 89.1 % (50.0-75.0); RBC 3.83 Mil/uL (4.40-5.90); RED CELL DISTRIBUTION WIDTH 13.8 % (11.5-14.5); WHITE BLOOD COUNT 19.2 K/uL (4.8-10.8)
[2018-12-18 15:15] LABS: PLATELET COUNT 70 K/uL (130-400)
[2018-12-18 16:17] LABS: LYMPHOCYTE 3 % (20-40); MONOCYTE 3 % (0-10); NEUTROPHIL 94 % (50-75); TOTAL CELLS COUNTED 100
[2018-12-18 16:18] LABS: PLATELET ESTIMATE DECREASED (NORMAL)
--- NOTE | 2018-12-18 16:55 | CP.PCM.HP ---
History of Present Illness - History of Present Illness History of Present Illness: A 78-year-old male patient presents with 2 days of constipation, fever, chills, abdominal pain.he was received a shot of Levaquin in the office.abdominal pain is dull, aching, cramping.pain is 7 out of 10.diffuse pain.exacerbated by co ugh.last bowel movement was days ago.also have a cough.past medical history of BPH, hypertension.no history of present changes, chest pain, nausea, vomiting.no history of dysuria, back pain, rash, weakness, anxiety. Past Medical History Reviewed: Historical Data, Nursing Documentation, Vital Signs Vital Signs: Last Vital Signs Temp 102.2 F H 12/17/18 22:06 Pulse 140 H 12/17/18 22:06 Resp 26 H 12/17/18 22:06 BP 129/63 12/17/18 22:06 Pulse Ox 94 L 12/17/18 22:06 - Medical History PMH: Benign Prostatic Hyperplasia (ON FLOMAX), HTN Denies: Chronic Kidney Disease Family History: States: No Known Family Hx - Social History Hx Alcohol Use: No Hx Substance Use: No - Immunization History Hx Tetanus Toxoid Vaccination: No Hx Influenza Vaccination: No Hx Pneumococcal Vaccination: No Review Of Systems Constitutional: Positive for: Fever, Chills Eyes: Negative for: Vision Change ENT: Negative for: Throat Pain Cardiovascular: Negative for: Chest Pain Respiratory: Positive for: Cough Gastrointestinal: Positive for: Abdominal Pain, Constipation. Negative for: Nausea, Vomiting Genitourinary: Negative for: Dysuria Musculoskeletal: Negative for: Back Pain Skin: Negative for: Rash Neurological: Negative for: Weakness Psych: Negative for: Anxiety Past Patient History - Past Social History Smoking Status: Never Smoked - CARDIAC Hx Cardiac Disorders: Yes Hx Hypertension: Yes - PULMONARY Hx Respiratory Disorders: Yes Other/Comment: POOR HISTORIAN -"LUNG PROBLEMS " - NEUROLOGICAL Hx Neurological Disorder: No - HEENT Hx HEENT Problems: Yes Other/Comment: Eyeglasses for reading - RENAL Hx Chronic Kidney Disease: No - ENDOCRINE/METABOLIC Hx Endocrine Disorders: Yes Hx Diabetes Mellitus Type 2: Yes - HEMATOLOGICAL/ONCOLOGICAL Hx Blood Disorders: No - INTEGUMENTARY Hx Dermatological Problems: No - MUSCULOSKELETAL/RHEUMATOLOGICAL Hx Musculoskeletal Disorders: No Hx Falls: No - GASTROINTESTINAL Hx Gastrointestinal Disorders: Yes Other/Comment: TREATED FOR BOWEL OBSTRUCTION. - GENITOURINARY/GYNECOLOGICAL Hx Genitourinary Disorders: Yes Hx Prostate Problems: Yes - PSYCHIATRIC Hx Psychophysiologic Disorder: No - SURGICAL HISTORY Hx Surgeries: Yes Hx Cataract Extraction: Yes (bilateral) Hx Orthopedic Surgery: Yes (L leg) - ANESTHESIA Hx Anesthesia: Yes Hx Anesthesia Reactions: No Hx Malignant Hyperthermia: No Has any member of the family had a problem w/ anesthesia?: No Meds Allergies/Adverse Reactions: Allergies Allergy/AdvReac Type Severity Reaction Status Date / Time No Known Allergies Allergy Verified 12/17/18 22:14 Physical Exam - Constitutional Appears: Well - Head Exam Head Exam: ATRAUMATIC, NORMAL INSPECTION, NORMOCEPHALIC - Eye Exam Eye Exam: EOMI, Normal appearance, PERRL Pupil Exam: NORMAL ACCOMODATION, PERRL - ENT Exam ENT Exam: Mucous Membranes Moist, Normal Exam - Neck Exam Neck exam: Positive for: Normal Inspection - Respiratory Exam Respiratory Exam: Decreased Breath Sounds - Cardiovascular Exam Cardiovascular Exam: REGULAR RHYTHM, +S1, +S2 - GI/Abdominal Exam GI & Abdominal Exam: Diminished Bowel Sounds, Soft - Rectal Exam Rectal Exam: Deferred - Neurological Exam Neurological exam: Oriented x3 Results - Vital Signs Recent Vital Signs: Last Vital Signs Temp 97.3 F L 12/18/18 08:00 Pulse 96 H 12/18/18 13:02 Resp 21 12/18/18 13:02 BP 95/42 L 12/18/18 13:02 Pulse Ox 100 12/18/18 13:02 - Labs Result Diagrams: 12/20/18 05:51 12/20/18 05:48 Labs: Laboratory Results - last 24 hr 12/17/18 12/17/18 12/17/18 22:28 22:28 22:28 WBC 21.9 H RBC 4.88 Hgb 13.2 Hct 40.3 MCV 82.5 MCH 27.1 MCHC 32.8 L RDW 13.8 Plt Count 101 L MPV 12.8 H Neut % (Auto) 93.3 H Lymph % (Auto) 5.2 L Garden % (Auto) 1.3 Eos % (Auto) 0.1 Baso % (Auto) 0.1 Neut # (Auto) 20.4 H Lymph # (Auto) 1.1 Garden # (Auto) 0.3 Eos # (Auto) 0.0 Baso # (Auto) 0.0 Neutrophils % (Manual) 94 H Band Neutrophils % 1 Lymphocytes % (Manual) 4 L Monocytes % (Manual) 1 Platelet Estimate Slightly decreased L RBC Morphology Normal PT 13.3 H INR 1.2 APTT 29.6 pO2 VBG pH VBG pCO2 VBG HCO3 VBG Total CO2 VBG O2 Sat (Calc) VBG Base Excess VBG Potassium Glucose Lactate Crit Value Called To Crit Value Called By Crit Value Read Back Blood Gas Notified Time Sodium 134 Potassium 3.3 L Chloride 100 Carbon Dioxide 20 L Anion Gap 18 BUN 26 H Creatinine 1.5 Est GFR ( Amer) 55 Est GFR (Non-Af Amer) 46 POC Glucose (mg/dL) Random Glucose 328 H Lactic Acid Calcium 10.2 Phosphorus Magnesium Total Bilirubin 0.6 AST 44 ALT 24 Alkaline Phosphatase 150 H Troponin I 0.0800 NT-Pro-B Natriuret Pep 1960 H Total Protein 7.1 Albumin 4.0 Globulin 3.1 Albumin/Globulin Ratio 1.3 Lipase 177 Procalcitonin Venous Blood Potassium Urine Color Urine Clarity Urine pH Ur Specific Grundy Urine Protein Urine Glucose (UA) Urine Ketones Urine Blood Urine Nitrate Urine Bilirubin Urine Urobilinogen Ur Leukocyte Esterase Urine WBC (Auto) Urine RBC (Auto) Ur Squamous Epith Cells Urine Bacteria 12/17/18 12/17/18 12/18/18 22:39 23:45 01:35 WBC RBC Hgb Hct MCV MCH MCHC RDW Plt Count MPV Neut % (Auto) Lymph % (Auto) Garden % (Auto) Eos % (Auto) Baso % (Auto) Neut # (Auto) Lymph # (Auto) Garden # (Auto) Eos # (Auto) Baso # (Auto) Neutrophils % (Manual) Band Neutrophils % Lymphocytes % (Manual) Monocytes % (Manual) Platelet Estimate RBC Morphology PT INR APTT pO2 29 L VBG pH 7.37 VBG pCO2 33 L VBG HCO3 19.6 VBG Total CO2 20.1 L VBG O2 Sat (Calc) 57.4 VBG Base Excess -5.3 L VBG Potassium 3.7 Glucose 328 H Lactate 5.8 H* Crit Value Called To Dr goodman Crit Value Called By Lev marion/rt Crit Value Read Back Y Blood Gas Notified Time 2355 Sodium 138.0 Potassium Chloride 95.0 L Carbon Dioxide Anion Gap BUN Creatinine Est GFR ( Amer) Est GFR (Non-Af Amer) POC Glucose (mg/dL) 294 H Random Glucose Lactic Acid 3.3 H Calcium Phosphorus Magnesium Total Bilirubin AST ALT Alkaline Phosphatase Troponin I NT-Pro-B Natriuret Pep Total Protein Albumin Globulin Albumin/Globulin Ratio Lipase Procalcitonin Venous Blood Potassium 3.7 Urine Color Urine Clarity Urine pH Ur Specific Grundy Urine Protein Urine Glucose (UA) Urine Ketones Urine Blood Urine Nitrate Urine Bilirubin Urine Urobilinogen Ur Leukocyte Esterase Urine WBC (Auto) Urine RBC (Auto) Ur Squamous Epith Cells Urine Bacteria 12/18/18 12/18/18 12/18/18 04:09 04:09 04:09 WBC 30.1 H RBC 4.09 L Hgb 10.9 L D Hct 34.6 L MCV 84.6 D MCH 26.7 L MCHC 31.5 L RDW 13.9 Plt Count 69 L D MPV 12.1 H Neut % (Auto) 88.5 H Lymph % (Auto) 6.6 L Garden % (Auto) 4.5 Eos % (Auto) 0.1 Baso % (Auto) 0.3 Neut # (Auto) 26.7 H Lymph # (Auto) 2.0 Garden # (Auto) 1.4 H Eos # (Auto) 0.0 Baso # (Auto) 0.1 Neutrophils % (Manual) 83 H Band Neutrophils % 3 H Lymphocytes % (Manual) 8 L Monocytes % (Manual) 6 Platelet Estimate Normal RBC Morphology PT INR APTT pO2 VBG pH VBG pCO2 VBG HCO3 VBG Total CO2 VBG O2 Sat (Calc) VBG Base Excess VBG Potassium Glucose Lactate Crit Value Called To Crit Value Called By Crit Value Read Back Blood Gas Notified Time Sodium 135 Potassium 3.8 Chloride 108 H Carbon Dioxide 19 L Anion Gap 13 BUN 24 H Creatinine 1.6 H Est GFR ( Amer) 51 Est GFR (Non-Af Amer) 42 POC Glucose (mg/dL) Random Glucose 337 H Lactic Acid 1.7 Calcium 7.7 L Phosphorus 2.3 L Magnesium 1.5 L Total Bilirubin 0.7 AST 36 ALT 40 Alkaline Phosphatase 100 Troponin I NT-Pro-B Natriuret Pep Total Protein 5.1 L Albumin 2.7 L D Globulin 2.4 Albumin/Globulin Ratio 1.1 Lipase Procalcitonin Venous Blood Potassium Urine Color Urine Clarity Urine pH Ur Specific Grundy Urine Protein Urine Glucose (UA) Urine Ketones Urine Blood Urine Nitrate Urine Bilirubin Urine Urobilinogen Ur Leukocyte Esterase Urine WBC (Auto) Urine RBC (Auto) Ur Squamous Epith Cells Urine Bacteria 12/18/18 12/18/18 12/18/18 09:21 10:53 15:00 WBC 19.2 H RBC 3.83 L Hgb 10.6 L Hct 31.9 L MCV 83.3 MCH 27.7 MCHC 33.3 RDW 13.8 Plt Count 70 L MPV 12.6 H Neut % (Auto) 89.1 H Lymph % (Auto) 7.5 L Garden % (Auto) 3.0 Eos % (Auto) 0.2 Baso % (Auto) 0.2 Neut # (Auto) 17.1 H Lymph # (Auto) 1.4 Garden # (Auto) 0.6 Eos # (Auto) 0.0 Baso # (Auto) 0.0 Neutrophils % (Manual) 94 H Band Neutrophils % Lymphocytes % (Manual) 3 L Monocytes % (Manual) 3 Platelet Estimate Decreased L RBC Morphology Normal PT INR APTT pO2 VBG pH VBG pCO2 VBG HCO3 VBG Total CO2 VBG O2 Sat (Calc) VBG Base Excess VBG Potassium Glucose Lactate Crit Value Called To Crit Value Called By Crit Value Read Back Blood Gas Notified Time Sodium Potassium Chloride Carbon Dioxide Anion Gap BUN Creatinine Est GFR ( Amer) Est GFR (Non-Af Amer) POC Glucose (mg/dL) Random Glucose Lactic Acid Calcium Phosphorus Magnesium Total Bilirubin AST ALT Alkaline Phosphatase Troponin I NT-Pro-B Natriuret Pep Total Protein Albumin Globulin Albumin/Globulin Ratio Lipase Procalcitonin 18.14 H Venous Blood Potassium Urine Color Yellow Urine Clarity Hazy Urine pH 5.0 Ur Specific Grundy 1.038 H Urine Protein Negative Urine Glucose (UA) 3+ H Urine Ketones Negative Urine Blood 2+ H Urine Nitrate Negative Urine Bilirubin Negative Urine Urobilinogen Normal Ur Leukocyte Esterase 3+ H Urine WBC (Auto) 178 H Urine RBC (Auto) 58 H Ur Squamous Epith Cells 1 Urine Bacteria Rare Assessment & Plan - Assessment and Plan (Free Text) Assessment: Plan WBC 21.9 Hemoglobin 13.2 Hematocrit 40.3 Platelets 101 Sodium 134 Potassium 3.3 Bicarbonate 20 BUN 26 Creatinine 1.5 Glucose 328 ECGsinus tachycardia, nonspecific changes O2 saturation 94 Chest x-rayno infiltrates, fracture, pneumothorax Moderate to high complexity of care. Plan of care discussed with patient &/or family & staff. Medications reviewed and reconciled. Labs reviewed. Vitals reviewed.
--- NOTE | 2018-12-18 17:49 | CARD ---
APPROVED REPORT Date of service: 12/18/2018 EXAM: Two-dimensional and M-mode echocardiogram with Doppler and color Doppler. Other Information Quality : GoodRhythm : RISK FACTORS Hypertension Hyperlipidemia Diabetes 2D DIMENSIONS IVSd1.0 (0.7-1.1cm)LVDd4.6 (3.9-5.9cm) PWd0.9 (0.7-1.1cm)LA [id number] (18-58mL) LVDs3.0 (2.5-4.0cm)FS (%) 36.1 % LVEF (%)65.8 (>50%)LVEF (Nicholson's)69.04 % M-Mode DIMENSIONS Left Atrium (MM)2.54 (2.5-4.0cm)IVSd0.76 (0.7-1.1cm) Aortic Root3.67 (2.2-3.7cm)LVDd5.23 (4.0-5.6cm) Aortic Cusp Exc.2.12 (1.5-2.0cm)PWd0.81 (0.7-1.1cm) FS (%) 37 %LVDs3.27 (2.0-3.8cm) LVEF (%)67 (>50%) Aortic Valve AI P 1/2 [id number] Mitral Valve MV E Nfjpfmvk77.8cm/sMV A Uyacrico58.7cm/sE/A ratio0.9 TDI Lateral E' Peak V9.38cm/sMedial E' Peak V6.80cm/sE/Lateral E'9.9 E/Medial E'13.6 Tricuspid Valve TR Peak [id number]/sTR Peak Gr.[id number] LEFT VENTRICLE The left ventricle is normal size. There is normal left ventricular wall thickness. The left ventricular function is normal. The left ventricular ejection fraction is within the normal range. There is normal LV segmental wall motion. Transmitral Doppler flow pattern is abnormal. RIGHT VENTRICLE The right ventricle is normal size. ATRIA The left atrium size is normal. The right atrium size is normal. AORTIC VALVE There is mild aortic regurgitation. MITRAL VALVE Mitral regurgitation is mild. TRICUSPID VALVE There is mild to moderate tricuspid regurgitation. <Conclusion> Normal LV systolic function. Normal chamber size. Mild AR. Mild MR. Mild to moderate TR.
--- NOTE | 2018-12-18 19:52 | CON ---
DATE: 12/18/2018 REASON FOR CONSULTATION: Hearing loss and ringing. HISTORY OF PRESENT ILLNESS: This is a 78-year-old male who is know to me, has had ringing and hearing loss in his right ear for two weeks, it is constant, mild to moderate in intensity, he has hearing loss and the ringing is on and off mild to moderate in intensity. He had pain previously when he presented to the office; however, the pain has resolved that was in his right ear. PAST MEDICAL HISTORY: As noted in chart by me. MEDICATIONS: As noted in chart by me. ALLERGIES: NOTED IN THE CHART BY ME. PHYSICAL EXAMINATION: HEAD: Atraumatic and normocephalic. FACE: Good facial movements bilaterally. CONSTITUTIONAL: Well fed, well nourished. COMMUNICATION: Communicates well and appropriately. EXTERNAL NOSE AND EARS: No masses, no lesions, no erythema, no edema. INTERNAL NOSE: Deviated septum. No masses, no lesions, no erythema, no edema. EARS: TM intact with no fluid behind it. ORAL CAVITY AND OROPHARYNX: No masses. No lesions. No erythema. No edema. LIPS AND GUMS: No masses. No lesions. No erythema. No edema. NECK: Supple. THYROID: No thyromegaly. No goiter. LYMPH NODES: No lymphadenopathy of the neck. ASSESSMENT: 1. Sensorineural hearing loss, right. 2. Right tinnitus. 3. Right ear pain resolved. 4. Deviated septum. PLAN: The patient has already completed his course of steroid and may qualify for intratympanic steroid injections. He already had his MRI done yesterday. The patient is to follow up in the office as soon as he leaves the hospital for possible intratympanic steroid injections. Roni Kaufman MD [facility]
[2018-12-19] MEDS: (Novolin R) Insulin Human Regular 100 units/ml vial SC SCH ×5 (01:14→21:29)
[2018-12-19] MEDS: Piperacillin/Tazobact 3.375 GM in Sodium Chloride 100 ML IVPB SCH ×3 (03:06→18:06)
[2018-12-19 06:21] LABS: BASO % 0.2 % (0.0-2.0); EOS # 0.1 K/uL (0.0-0.7); EOS % 0.5 % (0.0-4.0); HEMOGLOBIN 10.2 g/dL (12.0-18.0); LYMPH # 1.8 K/uL (1.0-4.3); LYMPH % 11.4 % (20.0-40.0); MEAN CELL VOLUME 84.1 fL (80.0-94.0); MEAN CORPUSCULAR HEMOGLOBIN 27.2 pg (27.0-31.0); MEAN CORPUSCULAR HGB CONC 32.4 g/dL (33.0-37.0); MEAN PLATELET VOLUME 11.5 fL (7.2-11.7); MONO % 6.4 % (0.0-10.0); NEUT # 12.7 K/uL (1.8-7.0); NEUT % 81.5 % (50.0-75.0); RBC 3.76 Mil/uL (4.40-5.90); WHITE BLOOD COUNT 15.6 K/uL (4.8-10.8)
[2018-12-19 06:29] LABS: ALB/GLOB RATIO 1.1 (1.0-2.1); ALBUMIN 2.9 g/dL (3.5-5.0); ALT/SGPT 29 U/L (21-72); AST/SGOT 39 U/L (17-59); BLOOD UREA NITROGEN 15 mg/dL (9-20); CALCIUM 7.3 mg/dl (8.6-10.4); GFR NON-AFRICAN AMERICAN 59
[2018-12-19] MEDS ORDERED: Potassium & Sodium Phosphate PO STA (08:30)
[2018-12-19] MEDS ORDERED: metroNIDAZOLE IV 500 mg/100 ml 500 MG/100 ML BAG IVPB ONE (10:30)
--- NOTE | 2018-12-19 11:14 | CP.CCUPN ---
<Elizabeth Huitron - Last Filed: 12/19/18 13:12> CCU Subjective - Physician Review Subjective (Free Text): ICU PROGRESS NOTE FOR DR. FELIPE Huitron PGY1 Pt seen and examined at bedside this am. Had Tmax 101.6 overnight. Denying complaints today CCU Objective - Vital Signs / Intake & Output Vital Signs (Last 4 hours): Vital Signs Temp Pulse Resp BP Pulse Ox 12/19/18 10:00 90 14 100 12/19/18 09:01 94 H 26 H 152/81 H 98 12/19/18 09:00 95 H 14 97 12/19/18 08:01 81 19 143/73 100 12/19/18 08:00 81 18 100 12/19/18 07:54 97.5 F L Intake and Output (Last 8hrs): Intake & Output 12/18/18 12/19/18 12/19/18 22:59 06:59 14:59 Intake Total 500 400 390 Output Total 750 900 Balance -250 -500 390 Intake: Intake, IV Amount 500 400 150 Right Hand 500 400 150 Oral 240 Output: Urine 750 900 Urine, Voided 750 900 Other: # Voids Urine, Voided 1 1 # Bowel Movements 1 - Physical Exam Head: Positive for: Atraumatic, Normocephalic Pupils: Positive for: PERRL Conjunctiva: Positive for: Normal Ears: Positive for: Normal Mouth: Positive for: Moist Mucous Membranes Nose (External): Positive for: Atraumatic Neck: Positive for: Normal Range of Motion Respiratory/Chest: Positive for: Clear to Auscultation Cardiovascular: Positive for: Regular Rate and Rhythm Abdomen: Positive for: Distention (soft), Other Upper Extremity: Positive for: Normal Inspection, Capillary Refill < 2s Lower Extremity: Positive for: Normal Inspection Skin: Positive for: Warm Psychiatric: Positive for: Alert - Medications Active Medications: Active Medications Generic Name Dose Route Start Last Admin Trade Name Freq PRN Reason Stop Dose Admin Acetaminophen 650 mg 12/19/18 01:38 12/19/18 02:00 Tylenol 325mg Tab PO 650 mg Q6 PRN Administration Fever >100.4 F Norepinephrine Bitartrate 8 mg 258 mls @ 7.74 mls/hr 12/18/18 01:39 12/18/18 10:30 / Dextrose IV 0 mcg/min .Q24H PRN 0 mls/hr TITRATE PER MD ORDER Titration Protocol 4 MCG/MIN Piperacillin Sod/Tazobactam 100 mls @ 200 mls/hr 12/18/18 02:45 12/19/18 10:12 Sod 3.375 gm/ Sodium Chloride IVPB 200 mls/hr Q8H RAJ Administration Protocol Metronidazole 500 mg in 100 mls @ 100 mls/hr 12/19/18 10:30 Flagyl IVPB 12/19/18 11:29 ONCE ONE Protocol Insulin Human Regular 0 unit 12/19/18 07:30 12/19/18 08:44 Novolin R SC 2 u ACHS RAJ Administration Protocol Pantoprazole Sodium 40 mg 12/19/18 10:00 12/19/18 09:10 Protonix Inj IVP 40 mg DAILY RAJ Administration Tamsulosin HCl 0.4 mg 12/19/18 10:00 12/19/18 09:10 Flomax PO 0.4 mg DAILY RAJ Administration - Patient Studies Lab Studies: Microbiology Studies 12/17/18 22:00 Blood Culture - Preliminary Blood Gram Negative Bob Gram Stain - Final 12/17/18 22:30 Blood Culture - Preliminary Blood Gram Negative Bob Gram Stain - Final Lab Studies 12/19/18 12/19/18 12/19/18 Range/Units 08:08 08:08 06:09 WBC 15.6 H (4.8-10.8) K/uL RBC 3.76 L (4.40-5.90) Mil/uL Hgb 10.2 L (12.0-18.0) g/dL Hct 31.6 L (35.0-51.0) % MCV 84.1 (80.0-94.0) fL MCH 27.2 (27.0-31.0) pg MCHC 32.4 L (33.0-37.0) g/dL RDW 14.0 (11.5-14.5) % Plt Count 55 L (130-400) K/uL Manual Plt Count 67 L (130-400) K/uL MPV 11.5 (7.2-11.7) fL Neut % (Auto) 81.5 H (50.0-75.0) % Lymph % (Auto) 11.4 L (20.0-40.0) % Sabine % (Auto) 6.4 (0.0-10.0) % Eos % (Auto) 0.5 (0.0-4.0) % Baso % (Auto) 0.2 (0.0-2.0) % Neut # (Auto) 12.7 H (1.8-7.0) K/uL Lymph # (Auto) 1.8 (1.0-4.3) K/uL Sabine # (Auto) 1.0 H (0.0-0.8) K/uL Eos # (Auto) 0.1 (0.0-0.7) K/uL Baso # (Auto) 0.0 (0.0-0.2) K/uL Neutrophils % (Manual) (50-75) % Lymphocytes % (Manual) (20-40) % Monocytes % (Manual) (0-10) % Platelet Estimate (NORMAL) RBC Morphology Sodium (132-148) mmol/L Potassium (3.6-5.2) mmol/L Chloride (98-107) mmol/L Carbon Dioxide (22-30) mmol/L Anion Gap (10-20) BUN (9-20) mg/dL Creatinine (0.8-1.5) mg/dL Est GFR ( Amer) Est GFR (Non-Af Amer) Random Glucose (75-110) mg/dL Lactic Acid 0.9 (0.7-2.1) mmol/L Calcium (8.6-10.4) mg/dl Phosphorus (2.5-4.5) mg/dL Magnesium (1.6-2.3) mg/dL Total Bilirubin (0.2-1.3) mg/dL AST (17-59) U/L ALT (21-72) U/L Alkaline Phosphatase (38-126) U/L Total Protein (6.3-8.3) g/dL Albumin (3.5-5.0) g/dL Globulin (2.2-3.9) gm/dL Albumin/Globulin Ratio (1.0-2.1) Procalcitonin (0.19-0.49) NG/ML 12/19/18 12/18/18 12/18/18 Range/Units 06:07 15:00 10:53 WBC 19.2 H (4.8-10.8) K/uL RBC 3.83 L (4.40-5.90) Mil/uL Hgb 10.6 L (12.0-18.0) g/dL Hct 31.9 L (35.0-51.0) % MCV 83.3 (80.0-94.0) fL MCH 27.7 (27.0-31.0) pg MCHC 33.3 (33.0-37.0) g/dL RDW 13.8 (11.5-14.5) % Plt Count 70 L (130-400) K/uL Manual Plt Count (130-400) K/uL MPV 12.6 H (7.2-11.7) fL Neut % (Auto) 89.1 H (50.0-75.0) % Lymph % (Auto) 7.5 L (20.0-40.0) % Sabine % (Auto) 3.0 (0.0-10.0) % Eos % (Auto) 0.2 (0.0-4.0) % Baso % (Auto) 0.2 (0.0-2.0) % Neut # (Auto) 17.1 H (1.8-7.0) K/uL Lymph # (Auto) 1.4 (1.0-4.3) K/uL Sabine # (Auto) 0.6 (0.0-0.8) K/uL Eos # (Auto) 0.0 (0.0-0.7) K/uL Baso # (Auto) 0.0 (0.0-0.2) K/uL Neutrophils % (Manual) 94 H (50-75) % Lymphocytes % (Manual) 3 L (20-40) % Monocytes % (Manual) 3 (0-10) % Platelet Estimate Decreased L (NORMAL) RBC Morphology Normal Sodium 137 (132-148) mmol/L Potassium 3.9 (3.6-5.2) mmol/L Chloride 109 H (98-107) mmol/L Carbon Dioxide 20 L (22-30) mmol/L Anion Gap 12 (10-20) BUN 15 (9-20) mg/dL Creatinine 1.2 (0.8-1.5) mg/dL Est GFR ( Amer) > 60 Est GFR (Non-Af Amer) 59 Random Glucose 149 H D (75-110) mg/dL Lactic Acid (0.7-2.1) mmol/L Calcium 7.3 L (8.6-10.4) mg/dl Phosphorus 2.4 L (2.5-4.5) mg/dL Magnesium 2.0 (1.6-2.3) mg/dL Total Bilirubin 1.0 (0.2-1.3) mg/dL AST 39 (17-59) U/L ALT 29 (21-72) U/L Alkaline Phosphatase 59 (38-126) U/L Total Protein 5.4 L (6.3-8.3) g/dL Albumin 2.9 L (3.5-5.0) g/dL Globulin 2.5 (2.2-3.9) gm/dL Albumin/Globulin Ratio 1.1 (1.0-2.1) Procalcitonin 18.14 H (0.19-0.49) NG/ML Laboratory Results - last 24 hr 12/18/18 12/18/18 12/19/18 10:53 15:00 06:07 WBC 19.2 H RBC 3.83 L Hgb 10.6 L Hct 31.9 L MCV 83.3 MCH 27.7 MCHC 33.3 RDW 13.8 Plt Count 70 L Manual Plt Count MPV 12.6 H Neut % (Auto) 89.1 H Lymph % (Auto) 7.5 L Sabine % (Auto) 3.0 Eos % (Auto) 0.2 Baso % (Auto) 0.2 Neut # (Auto) 17.1 H Lymph # (Auto) 1.4 Sabine # (Auto) 0.6 Eos # (Auto) 0.0 Baso # (Auto) 0.0 Neutrophils % (Manual) 94 H Lymphocytes % (Manual) 3 L Monocytes % (Manual) 3 Platelet Estimate Decreased L RBC Morphology Normal Sodium 137 Potassium 3.9 Chloride 109 H Carbon Dioxide 20 L Anion Gap 12 BUN 15 Creatinine 1.2 Est GFR ( Amer) > 60 Est GFR (Non-Af Amer) 59 Random Glucose 149 H D Lactic Acid Calcium 7.3 L Phosphorus 2.4 L Magnesium 2.0 Total Bilirubin 1.0 AST 39 ALT 29 Alkaline Phosphatase 59 Total Protein 5.4 L Albumin 2.9 L Globulin 2.5 Albumin/Globulin Ratio 1.1 Procalcitonin 18.14 H 12/19/18 12/19/18 12/19/18 06:09 08:08 08:08 WBC 15.6 H RBC 3.76 L Hgb 10.2 L Hct 31.6 L MCV 84.1 MCH 27.2 MCHC 32.4 L RDW 14.0 Plt Count 55 L Manual Plt Count 67 L MPV 11.5 Neut % (Auto) 81.5 H Lymph % (Auto) 11.4 L Sabine % (Auto) 6.4 Eos % (Auto) 0.5 Baso % (Auto) 0.2 Neut # (Auto) 12.7 H Lymph # (Auto) 1.8 Sabine # (Auto) 1.0 H Eos # (Auto) 0.1 Baso # (Auto) 0.0 Neutrophils % (Manual) Lymphocytes % (Manual) Monocytes % (Manual) Platelet Estimate RBC Morphology Sodium Potassium Chloride Carbon Dioxide Anion Gap BUN Creatinine Est GFR ( Amer) Est GFR (Non-Af Amer) Random Glucose Lactic Acid 0.9 Calcium Phosphorus Magnesium Total Bilirubin AST ALT Alkaline Phosphatase Total Protein Albumin Globulin Albumin/Globulin Ratio Procalcitonin Radiology Impressions: Radiology Impressions Abdomen/Pelvis CT 12/17/18 23:06 IMPRESSION: Bibasilar atelectasis/infiltrates. Partially imaged cardiomegaly. Small hiatal hernia/distal esophageal wall thickening. Too small to characterize right hepatic lobe hypodensity; statistically likely cyst or hemangioma. Hepatomegaly. Tiny calcified gallstone. Bilateral probable renal cysts. Nondistended fluid-filled loops of small and large bowel; correlate clinically for diarrheal illness. Nonspecific wall thickening of small bowel loops in the left upper quadrant; correlate clinically for possibility of ileitis. Enlarged prostate gland which contains calcifications; recommend correlation with PSA. Mild diffuse urinary bladder wall thickening may be exaggerated by under distension; recommend correlation with urinalysis. Preliminary impression was provided by [facility]. Fingerstick Blood Sugar Results: 158 Review of Systems - Review of Systems Review of Systems: per HPI Critical Care Progress Note - Nutrition Nutrition: Nutrition Category Date Time Status Consistent Carbohydrate [DIET] Diets 12/18/18 Lunch Active Assessment/Plan - Assessment and Plan (Free Text) Assessment: 78M with PMH DM2, HTN, BPH, hypotension, osteoporosis, vertigo admitted to ICU for septic shock 2/2 UTI & gram negative bacteremia Plan: ID: Septic shock -2/2 UTI & gram negative bacteremia -WBC downtrending, febrile overnight. lactate normalized. No longer on vasopressor support -U/A showing 3+ LE & 178 WBC in urine. Lactate normalized. f/u repeat procalcitonin -s/p 3L IVF bolus, 30cc/kg per surviving sepsis campaign. Continue maintenance IVF @50mls/hr -continue therapeutic zosyn coverage -will start flagyl today given CT A/P revealing possible ileitis R ear tinnitus/sensorineural hearing loss -Pt has been followed by Dr. Kaufman in outpatient setting, will consult for recs -He has been receiving steroids injections, and has been tapered to oral steroids, likely contributing to leukocytosis -Recently had MRI head @[facility]. Will obtain report -pt to f/u with ENT for possible intratympanic steroids injections -R femoral TLC was removed yesterday. Neuro: -AxO x 3 -GCS 15 -Reorient frequently CV: -Currently normotensive. Was on levophed @4mcg/min overnight, not requiring vasopressor support currently -BNP 1960. CXR: revealing mild vascular congestion. Will obtain echocardiogram. Monitor for signs of fluid overload -Maintain MAP >65 GI: -No abdominal pain. Reports passing gas and stool -Will administer once dose flagyl given CT A/P findings -Will continue carb consistent diet Heme Thrombocytopenia -Manual count 67, will obtain peripheral smear -Likely in the setting of septic shock -will treat underlying shock Endocrine DM2 -BS in 300s. Pt takes oral antihypoglycemics at home -Will start sliding scale insulin DVT/GI: SCD(no hep d/t thrombocytopenia)/Protonix Case reviewed with attending physician, Dr. Felipe Huitron PGY1 <Royal Wang - Last Filed: 12/19/18 16:13> CCU Subjective - Physician Review Critical Care Time Spent (in minutes): 40 CCU Objective - Vital Signs / Intake & Output Vital Signs (Last 4 hours): Vital Signs Pulse Resp BP Pulse Ox 12/19/18 15:01 88 25 H 168/85 H 99 12/19/18 15:00 89 27 H 100 12/19/18 14:01 83 23 164/78 H 99 12/19/18 14:00 85 24 100 12/19/18 13:01 87 22 163/82 H 100 12/19/18 13:00 89 21 100 Intake and Output (Last 8hrs): Intake & Output 12/19/18 12/19/18 12/19/18 06:59 14:59 22:59 Intake Total 400 930 50 Output Total 900 300 Balance -500 630 50 Intake: Intake, IV Amount 400 450 50 Right Hand 400 450 50 Oral 480 Output: Urine 900 300 Urine, Voided 900 300 Other: # Voids Urine, Voided 1 1 # Bowel Movements 1 - Medications Active Medications: Active Medications Generic Name Dose Route Start Last Admin Trade Name Freq PRN Reason Stop Dose Admin Acetaminophen 650 mg 12/19/18 01:38 12/19/18 02:00 Tylenol 325mg Tab PO 650 mg Q6 PRN Administration Fever >100.4 F Amlodipine Besylate 2.5 mg 12/20/18 10:00 Norvasc PO DAILY RAJ Piperacillin Sod/Tazobactam 100 mls @ 200 mls/hr 12/18/18 02:45 12/19/18 10:12 Sod 3.375 gm/ Sodium Chloride IVPB 200 mls/hr Q8H RAJ Administration Protocol Sodium Chloride 1,000 mls @ 50 mls/hr 12/19/18 11:30 12/19/18 11:25 Sodium Chloride 0.9% IV 50 mls/hr .Q20H RAJ Administration Insulin Human Regular 0 unit 12/19/18 07:30 12/19/18 11:24 Novolin R SC 3 u ACHS RAJ Administration Protocol Metoprolol Succinate 50 mg 12/19/18 16:00 12/19/18 15:55 Toprol Xl PO 50 mg DAILY RAJ Administration Pantoprazole Sodium 40 mg 12/19/18 10:00 12/19/18 09:10 Protonix Inj IVP 40 mg DAILY RAJ Administration Tamsulosin HCl 0.4 mg 12/19/18 10:00 12/19/18 09:10 Flomax PO 0.4 mg DAILY RAJ Administration - Patient Studies Lab Studies: Microbiology Studies 12/17/18 22:00 Blood Culture - Preliminary Blood Gram Negative Bob Gram Stain - Final 12/17/18 22:30 Blood Culture - Preliminary Blood Gram Negative Bob Gram Stain - Final Lab Studies 12/19/18 12/19/18 12/19/18 Range/Units 08:58 08:08 08:08 WBC (4.8-10.8) K/uL RBC (4.40-5.90) Mil/uL Hgb (12.0-18.0) g/dL Hct (35.0-51.0) % MCV (80.0-94.0) fL MCH (27.0-31.0) pg MCHC (33.0-37.0) g/dL RDW (11.5-14.5) % Plt Count (130-400) K/uL Manual Plt Count 67 L (130-400) K/uL MPV (7.2-11.7) fL Neut % (Auto) (50.0-75.0) % Lymph % (Auto) (20.0-40.0) % Sabine % (Auto) (0.0-10.0) % Eos % (Auto) (0.0-4.0) % Baso % (Auto) (0.0-2.0) % Neut # (Auto) (1.8-7.0) K/uL Lymph # (Auto) (1.0-4.3) K/uL Sabine # (Auto) (0.0-0.8) K/uL Eos # (Auto) (0.0-0.7) K/uL Baso # (Auto) (0.0-0.2) K/uL Neutrophils % (Manual) (50-75) % Lymphocytes % (Manual) (20-40) % Monocytes % (Manual) (0-10) % Platelet Estimate (NORMAL) RBC Morphology Sodium (132-148) mmol/L Potassium (3.6-5.2) mmol/L Chloride (98-107) mmol/L Carbon Dioxide (22-30) mmol/L Anion Gap (10-20) BUN (9-20) mg/dL Creatinine (0.8-1.5) mg/dL Est GFR ( Amer) Est GFR (Non-Af Amer) Random Glucose (75-110) mg/dL Lactic Acid 0.9 (0.7-2.1) mmol/L Calcium (8.6-10.4) mg/dl Phosphorus (2.5-4.5) mg/dL Magnesium (1.6-2.3) mg/dL Total Bilirubin (0.2-1.3) mg/dL AST (17-59) U/L ALT (21-72) U/L Alkaline Phosphatase (38-126) U/L Total Protein (6.3-8.3) g/dL Albumin (3.5-5.0) g/dL Globulin (2.2-3.9) gm/dL Albumin/Globulin Ratio (1.0-2.1) Procalcitonin 7.60 H (0.19-0.49) NG/ML C. difficile Ag & Toxin (NEGATIVE) 12/19/18 12/19/18 12/18/18 Range/Units 06:09 06:07 15:00 WBC 15.6 H (4.8-10.8) K/uL RBC 3.76 L (4.40-5.90) Mil/uL Hgb 10.2 L (12.0-18.0) g/dL Hct 31.6 L (35.0-51.0) % MCV 84.1 (80.0-94.0) fL MCH 27.2 (27.0-31.0) pg MCHC 32.4 L (33.0-37.0) g/dL RDW 14.0 (11.5-14.5) % Plt Count 55 L (130-400) K/uL Manual Plt Count (130-400) K/uL MPV 11.5 (7.2-11.7) fL Neut % (Auto) 81.5 H (50.0-75.0) % Lymph % (Auto) 11.4 L (20.0-40.0) % Sabine % (Auto) 6.4 (0.0-10.0) % Eos % (Auto) 0.5 (0.0-4.0) % Baso % (Auto) 0.2 (0.0-2.0) % Neut # (Auto) 12.7 H (1.8-7.0) K/uL Lymph # (Auto) 1.8 (1.0-4.3) K/uL Sabine # (Auto) 1.0 H (0.0-0.8) K/uL Eos # (Auto) 0.1 (0.0-0.7) K/uL Baso # (Auto) 0.0 (0.0-0.2) K/uL Neutrophils % (Manual) 94 H (50-75) % Lymphocytes % (Manual) 3 L (20-40) % Monocytes % (Manual) 3 (0-10) % Platelet Estimate Decreased L (NORMAL) RBC Morphology Normal Sodium 137 (132-148) mmol/L Potassium 3.9 (3.6-5.2) mmol/L Chloride 109 H (98-107) mmol/L Carbon Dioxide 20 L (22-30) mmol/L Anion Gap 12 (10-20) BUN 15 (9-20) mg/dL Creatinine 1.2 (0.8-1.5) mg/dL Est GFR ( Amer) > 60 Est GFR (Non-Af Amer) 59 Random Glucose 149 H D (75-110) mg/dL Lactic Acid (0.7-2.1) mmol/L Calcium 7.3 L (8.6-10.4) mg/dl Phosphorus 2.4 L (2.5-4.5) mg/dL Magnesium 2.0 (1.6-2.3) mg/dL Total Bilirubin 1.0 (0.2-1.3) mg/dL AST 39 (17-59) U/L ALT 29 (21-72) U/L Alkaline Phosphatase 59 (38-126) U/L Total Protein 5.4 L (6.3-8.3) g/dL Albumin 2.9 L (3.5-5.0) g/dL Globulin 2.5 (2.2-3.9) gm/dL Albumin/Globulin Ratio 1.1 (1.0-2.1) Procalcitonin (0.19-0.49) NG/ML C. difficile Ag & Toxin (NEGATIVE) 12/18/18 Range/Units 07:51 WBC (4.8-10.8) K/uL RBC (4.40-5.90) Mil/uL Hgb (12.0-18.0) g/dL Hct (35.0-51.0) % MCV (80.0-94.0) fL MCH (27.0-31.0) pg MCHC (33.0-37.0) g/dL RDW (11.5-14.5) % Plt Count (130-400) K/uL Manual Plt Count (130-400) K/uL MPV (7.2-11.7) fL Neut % (Auto) (50.0-75.0) % Lymph % (Auto) (20.0-40.0) % Sabine % (Auto) (0.0-10.0) % Eos % (Auto) (0.0-4.0) % Baso % (Auto) (0.0-2.0) % Neut # (Auto) (1.8-7.0) K/uL Lymph # (Auto) (1.0-4.3) K/uL Sabine # (Auto) (0.0-0.8) K/uL Eos # (Auto) (0.0-0.7) K/uL Baso # (Auto) (0.0-0.2) K/uL Neutrophils % (Manual) (50-75) % Lymphocytes % (Manual) (20-40) % Monocytes % (Manual) (0-10) % Platelet Estimate (NORMAL) RBC Morphology Sodium (132-148) mmol/L Potassium (3.6-5.2) mmol/L Chloride (98-107) mmol/L Carbon Dioxide (22-30) mmol/L Anion Gap (10-20) BUN (9-20) mg/dL Creatinine (0.8-1.5) mg/dL Est GFR ( Amer) Est GFR (Non-Af Amer) Random Glucose (75-110) mg/dL Lactic Acid (0.7-2.1) mmol/L Calcium (8.6-10.4) mg/dl Phosphorus (2.5-4.5) mg/dL Magnesium (1.6-2.3) mg/dL Total Bilirubin (0.2-1.3) mg/dL AST (17-59) U/L ALT (21-72) U/L Alkaline Phosphatase (38-126) U/L Total Protein (6.3-8.3) g/dL Albumin (3.5-5.0) g/dL Globulin (2.2-3.9) gm/dL Albumin/Globulin Ratio (1.0-2.1) Procalcitonin (0.19-0.49) NG/ML C. difficile Ag & Toxin Negative (NEGATIVE) Laboratory Results - last 24 hr 12/18/18 12/18/18 12/19/18 07:51 15:00 06:07 WBC RBC Hgb Hct MCV MCH MCHC RDW Plt Count Manual Plt Count MPV Neut % (Auto) Lymph % (Auto) Sabine % (Auto) Eos % (Auto) Baso % (Auto) Neut # (Auto) Lymph # (Auto) Sabine # (Auto) Eos # (Auto) Baso # (Auto) Neutrophils % (Manual) 94 H Lymphocytes % (Manual) 3 L Monocytes % (Manual) 3 Platelet Estimate Decreased L RBC Morphology Normal Sodium 137 Potassium 3.9 Chloride 109 H Carbon Dioxide 20 L Anion Gap 12 BUN 15 Creatinine 1.2 Est GFR ( Amer) > 60 Est GFR (Non-Af Amer) 59 Random Glucose 149 H D Lactic Acid Calcium 7.3 L Phosphorus 2.4 L Magnesium 2.0 Total Bilirubin 1.0 AST 39 ALT 29 Alkaline Phosphatase 59 Total Protein 5.4 L Albumin 2.9 L Globulin 2.5 Albumin/Globulin Ratio 1.1 Procalcitonin C. difficile Ag & Toxin Negative 12/19/18 12/19/18 12/19/18 06:09 08:08 08:08 WBC 15.6 H RBC 3.76 L Hgb 10.2 L Hct 31.6 L MCV 84.1 MCH 27.2 MCHC 32.4 L RDW 14.0 Plt Count 55 L Manual Plt Count 67 L MPV 11.5 Neut % (Auto) 81.5 H Lymph % (Auto) 11.4 L [place]ine % (Auto) 6.4 Eos % (Auto) 0.5 Baso % (Auto) 0.2 Neut # (Auto) 12.7 H Lymph # (Auto) 1.8 Sabine # (Auto) 1.0 H Eos # (Auto) 0.1 Baso # (Auto) 0.0 Neutrophils % (Manual) Lymphocytes % (Manual) Monocytes % (Manual) Platelet Estimate RBC Morphology Sodium Potassium Chloride Carbon Dioxide Anion Gap BUN Creatinine Est GFR ( Amer) Est GFR (Non-Af Amer) Random Glucose Lactic Acid 0.9 Calcium Phosphorus Magnesium Total Bilirubin AST ALT Alkaline Phosphatase Total Protein Albumin Globulin Albumin/Globulin Ratio Procalcitonin C. difficile Ag & Toxin 12/19/18 08:58 WBC RBC Hgb Hct MCV MCH MCHC RDW Plt Count Manual Plt Count MPV Neut % (Auto) Lymph % (Auto) Sabine % (Auto) Eos % (Auto) Baso % (Auto) Neut # (Auto) Lymph # (Auto) Sabine # (Auto) Eos # (Auto) Baso # (Auto) Neutrophils % (Manual) Lymphocytes % (Manual) Monocytes % (Manual) Platelet Estimate RBC Morphology Sodium Potassium Chloride Carbon Dioxide Anion Gap BUN Creatinine Est GFR ( Amer) Est GFR (Non-Af Amer) Random Glucose Lactic Acid Calcium Phosphorus Magnesium Total Bilirubin AST ALT Alkaline Phosphatase Total Protein Albumin Globulin Albumin/Globulin Ratio Procalcitonin 7.60 H C. difficile Ag & Toxin Critical Care Progress Note - Nutrition Nutrition: Nutrition Category Date Time Status Consistent Carbohydrate [DIET] Diets 12/18/18 Lunch Active Attending/Attestation - Attestation I have personally seen and examined this patient.: Yes I have fully participated in the care of the patient.: Yes I have reviewed all pertinent clinical information: Yes Notes (Text): 12/19/18 16:13 Patient seen and examined in the intensive care unit. Case discussed with housestaff in the morning rounds. Continue antibiotics for gram-negative rods in the blood Follow-up culture and sensitivity Started on Flagyl for possible ileitis
[2018-12-19] MEDS ORDERED: Sodium Chloride 0.9% 1,000 ML IV SCH (11:30)
[2018-12-19] MEDS: Metoprolol Succinate 50 mg XL Tab PO SCH (15:55)
--- NOTE | 2018-12-19 21:14 | CP.PCM.PN ---
Subjective - Date & Time of Evaluation Date of Evaluation: 12/19/18 - Subjective Subjective: patient examined today no nausea, no dizziness, no diarrhea, no fever, no shortness of breath Objective - Vital Signs/Intake and Output Vital Signs (last 24 hours): Temp Pulse Resp BP Pulse Ox 97.6 F 86 26 H 160/81 H 100 12/19/18 16:00 12/19/18 20:01 12/19/18 20:01 12/19/18 20:01 12/19/18 20:01 Intake and Output: 12/19/18 12/20/18 18:59 06:59 Intake Total 1370 100 Output Total 450 Balance 920 100 - Medications Medications: Current Medications Acetaminophen (Tylenol 325mg Tab) 650 mg PO Q6 PRN PRN Reason: Fever >100.4 F Last Admin: 12/19/18 02:00 Dose: 650 mg Amlodipine Besylate (Norvasc) 2.5 mg PO DAILY [facility] Piperacillin Sod/Tazobactam (Sod 3.375 gm/ Sodium Chloride) 100 mls @ 200 mls/hr IVPB Q8H RAJ; Protocol Last Admin: 12/19/18 18:06 Dose: 200 mls/hr Sodium Chloride (Sodium Chloride 0.9%) 1,000 mls @ 50 mls/hr IV .Q20H [facility] Last Admin: 12/19/18 11:25 Dose: 50 mls/hr Insulin Human Regular (Novolin R) 0 unit SC ACHS RAJ; Protocol Last Admin: 12/19/18 16:43 Dose: 3 u Metoprolol Succinate (Toprol Xl) 50 mg PO DAILY [facility] Last Admin: 12/19/18 15:55 Dose: 50 mg Pantoprazole Sodium (Protonix Inj) 40 mg IVP DAILY RAJ Last Admin: 12/19/18 09:10 Dose: 40 mg Tamsulosin HCl (Flomax) 0.4 mg PO DAILY RAJ Last Admin: 12/19/18 09:10 Dose: 0.4 mg - Labs Labs: 12/19/18 06:09 12/19/18 06:07 PT 13.3 SECONDS (9.7-12.2) H 12/17/18 22:28 INR 1.2 12/17/18 22:28 APTT 29.6 SECONDS (21-34) 12/17/18 22:28 - Constitutional Appears: Well - Head Exam Head Exam: ATRAUMATIC, NORMAL INSPECTION, NORMOCEPHALIC - Eye Exam Eye Exam: EOMI, Normal appearance, PERRL Pupil Exam: NORMAL ACCOMODATION, PERRL - ENT Exam ENT Exam: Mucous Membranes Moist, Normal Exam - Neck Exam Neck Exam: Full ROM, Normal Inspection. absent: Lymphadenopathy - Respiratory Exam Respiratory Exam: Decreased Breath Sounds - Cardiovascular Exam Cardiovascular Exam: REGULAR RHYTHM, +S1, +S2 - GI/Abdominal Exam GI & Abdominal Exam: Soft, Diminished Bowel Sounds - Rectal Exam Rectal Exam: Deferred - Neurological Exam Neurological Exam: Oriented x3 Assessment and Plan - Assessment and Plan (Free Text) Plan: plan discussed with patient and family moderate to severe complexity of care flomax heparin k-dur maxipime norvasc novolon R protonix inj Sodium phosphate toprol xl tylenol medications reviewed labs reviewed vitals reviewed
--- NOTE | 2018-12-19 22:50 | CP.PCM.CON ---
History of Present Illness - History of Present Illness History of Present Illness: 78 y/o M with PMHx of DM2, HTN, BPH, osteoporosis, vertigo presented [facility] ED from [facility] home after he had complaints of abdominal pain for several days. he has been following with ENT doctor and had received steroid injection for R ear tinnitus. He was brought to ICU after code sepsis was called in ED as pt had WBC 21, lactate 5.8 and was hypotensive requiring levophed support. ID consulted for empiric IV antibiotics PMH: DM2, HTN, BPH, hypotension, osteoporosis, vertigo All: NKDA PSH: b/l cataract surgery SH: Denies tobacco, ETOH, illicit drug use FH: non-contributory Hosp: Lives at [facility] Review of Systems - Review of Systems All systems: reviewed and no additional remarkable complaints except - Constitutional Constitutional: As Per HPI - EENT Eyes: absent: As Per HPI, Blind Spots, Blurred Vision, Change in Vision, Decreased Night Vision, Diplopia, Discharge, Dry Eye, Exophthalmos, Floaters, Irritation, Itchy Eyes, Loss of Peripheral Vision, Pain, Photophobia, Requires Corrective Lenses, Sees Flashes, Spots in Vision, Tunnel Vision, Other Visual Disturbances, Loss of Vision, Other Ears: absent: As Per HPI, Decreased Hearing, Ear Discharge, Ear Pain, Tinnitus, Abnormal Hearing, Disequilibrium, Dizziness, Other Nose/Mouth/Throat: absent: As Per HPI, Epistaxis, Nasal Congestion, Nasal Discharge, Nasal Obstruction, Nasal Trauma, Nose Pain, Post Nasal Drip, Sinus Pain, Sinus Pressure, Bleeding Gums, Change in Voice, Dental Pain, Dry Mouth, Dysphagia, Halitosis, Hoarsness, Lip Swelling, Mouth Lesions, Mouth Pain, Odynophagia, Sore Throat, Throat Swelling, Tongue Swelling, Facial Pain, Neck Pain, Neck Mass, Other - Cardiovascular Cardiovascular: As Per HPI - Respiratory Respiratory: absent: As Per HPI, Cough, Dyspnea, Hemoptysis, Dyspnea on Exertion, Wheezing, Snoring, Stridor, Pain on Inspiration, Chest Congestion, Excessive Mucous Production, Change in Mucous Color, Pain with Coughing, Other - Gastrointestinal Gastrointestinal: As Per HPI - Genitourinary Genitourinary: absent: As Per HPI, Change in Urinary Stream, Difficulty Urinating, Dysuria, Flank Pain, Hematuria, Pyuria, Nocturia, Urinary Incontinence, Urinary Frequency, Urinary Hesitance, Urinary Urgency, Voiding Freq/Small Amts, Freq UTI, Hx Renal/Bladder Calculi, Hx /Renal Surgery, Bladder Distension, Other - Musculoskeletal Musculoskeletal: absent: As Per HPI, Abnormal Gait, Arthralgias, Atrophy, Back Pain, Deformity, Joint Swelling, Limited Range of Motion, Loss of Height, Muscle Cramps, Muscle Weakness, Myalgias, Neck Pain, Numbness, Radiating Pain into Limb, Stiffness, Tingling, Other - Integumentary Integumentary: absent: As Per HPI, Acne, Alopecia, Bleeding Lesions, Change in Hair, Change in Nails, Change in Pigmentation, Changing Lesions, Dry Skin, Erythema, Furuncle, Hirsutism, Lesions, New Lesions, Non-Healing Lesions, Photosensitivity, Pruritus, Rash, Skin Pain, Skin Ulcer, Sores, Striae, Swelling, Unusual Bruising, Wounds, Jaundice, Other - Neurological Neurological: absent: As Per HPI, Abnormal Gait, Abnormal Hearing, Abnormal Movements, Abnormal Speech, Behavioral Changes, Burning Sensations, Confusion, Convulsions, Disequilibrium, Dizziness, Numbness, Focal Weakness, Frequent Falls, Headaches, Lack of Coordination, Loss of Vision, Memory Loss, Paresth esias, Radicular Pain, Restless Legs, Sensory Deficit, Syncope, Tingling, Tremor, Vertigo, Weakness, Other Visual Disturbances, Other - Psychiatric Psychiatric: absent: As Per HPI, Abnormal Sleep Pattern, Anhedonia, Anxiety, Auditory Hallucinations, Behavioral Changes, Change in Appetite, Change in Libido, Confusion, Depression, Difficulty Concentrating, Hallucinations, Homicidal Ideation, Hopelessness, Irritability, Memory Loss, Mood Swings, Panic Attacks, Paranoia, Suicidal Ideation, Visual Hallucinations, Tactile Hallucinations, Other - Endocrine Endocrine: absent: As Per HPI, Change in Body Appearance, Change in Libido, Cold Intolorance, Deepening of Voice, Excessive Sweating, Fatigue, Flushing, Heat Intolorance, Increase in Ring/Shoe/Hat Size, Palpitations, Polydipsia, Polyphagia, Polyuria, Other - Hematologic/Lymphatic Hematologic: absent: As Per HPI, Easy Bleeding, Easy Bruising, Lymphadenopathy, Other Past Patient History - Past Social History Smoking Status: Never Smoked - CARDIAC Hx Cardiac Disorders: Yes Hx Hypertension: Yes - PULMONARY Hx Respiratory Disorders: Yes Other/Comment: POOR HISTORIAN -"LUNG PROBLEMS " - NEUROLOGICAL Hx Neurological Disorder: No - HEENT Hx HEENT Problems: Yes Other/Comment: Eyeglasses for reading - RENAL Hx Chronic Kidney Disease: No - ENDOCRINE/METABOLIC Hx Endocrine Disorders: Yes Hx Diabetes Mellitus Type 2: Yes - HEMATOLOGICAL/ONCOLOGICAL Hx Blood Disorders: No - INTEGUMENTARY Hx Dermatological Problems: No - MUSCULOSKELETAL/RHEUMATOLOGICAL Hx Musculoskeletal Disorders: No Hx Falls: No - GASTROINTESTINAL Hx Gastrointestinal Disorders: Yes Other/Comment: TREATED FOR BOWEL OBSTRUCTION. - GENITOURINARY/GYNECOLOGICAL Hx Genitourinary Disorders: Yes Hx Prostate Problems: Yes - PSYCHIATRIC Hx Psychophysiologic Disorder: No - SURGICAL HISTORY Hx Surgeries: Yes Hx Cataract Extraction: Yes (bilateral) Hx Orthopedic Surgery: Yes (L leg) - ANESTHESIA Hx Anesthesia: Yes Hx Anesthesia Reactions: No Hx Malignant Hyperthermia: No Has any member of the family had a problem w/ anesthesia?: No Meds Allergies/Adverse Reactions: Allergies Allergy/AdvReac Type Severity Reaction Status Date / Time No Known Allergies Allergy Verified 12/17/18 22:14 - Medications Medications: Current Medications Norepinephrine Bitartrate 8 mg (/ Dextrose) 258 mls @ 7.74 mls/hr IV .Q24H PRN; Protocol PRN Reason: TITRATE PER MD ORDER Last Titration: 12/18/18 10:30 Dose: 0 mcg/min, 0 mls/hr Piperacillin Sod/Tazobactam (Sod 3.375 gm/ Sodium Chloride) 100 mls @ 200 mls/hr IVPB Q8H [facility]; Protocol Last Admin: 12/18/18 18:10 Dose: 200 mls/hr Insulin Human Regular (Novolin R) 0 unit SC Q6 [facility]; Protocol Last Admin: 12/18/18 18:10 Dose: 3 u Pantoprazole Sodium (Protonix Inj) 40 mg IVP DAILY [facility] Physical Exam - Constitutional Appears: Non-toxic, No Acute Distress, Chronically Ill - Head Exam Head Exam: NORMOCEPHALIC - Eye Exam Eye Exam: absent: Scleral icterus Pupil Exam: NORMAL ACCOMODATION - ENT Exam ENT Exam: Mucous Membranes Dry, Normal External Ear Exam - Respiratory Exam Respiratory Exam: Decreased Breath Sounds, Prolonged Expiratory Phase, Rhonchi - Cardiovascular Exam Cardiovascular Exam: REGULAR RHYTHM, +S1, +S2 - GI/Abdominal Exam GI & Abdominal Exam: Diminished Bowel Sounds, Soft. absent: Tenderness - Rectal Exam Rectal Exam: Deferred - Exam Exam: NORMAL INSPECTION - Extremities Exam Extremities exam: Negative for: pedal edema - Back Exam Back exam: absent: CVA tenderness (L), CVA tenderness (R), paraspinal tenderness - Neurological Exam Neurological exam: Alert, CN II-XII Intact, Oriented x3, Reflexes Normal - Psychiatric Exam Psychiatric exam: Depressed - Skin Skin Exam: Dry Results - Vital Signs Recent Vital Signs: Last Vital Signs Temp 98.9 F 12/18/18 16:00 Pulse 110 H 12/18/18 23:01 Resp 17 12/18/18 23:01 BP 120/72 12/18/18 23:01 Pulse Ox 95 12/18/18 23:01 - Labs Result Diagrams: 12/19/18 06:09 12/19/18 06:07 Labs: Laboratory Results - last 24 hr 12/18/18 12/18/18 12/18/18 01:35 04:09 04:09 WBC 30.1 H RBC 4.09 L Hgb 10.9 L D Hct 34.6 L MCV 84.6 D MCH 26.7 L MCHC 31.5 L RDW 13.9 Plt Count 69 L D MPV 12.1 H Neut % (Auto) 88.5 H Lymph % (Auto) 6.6 L [place] % (Auto) 4.5 Eos % (Auto) 0.1 Baso % (Auto) 0.3 Neut # (Auto) 26.7 H Lymph # (Auto) 2.0 [place] # (Auto) 1.4 H Eos # (Auto) 0.0 Baso # (Auto) 0.1 Neutrophils % (Manual) 83 H Band Neutrophils % 3 H Lymphocytes % (Manual) 8 L Monocytes % (Manual) 6 Platelet Estimate Normal RBC Morphology Sodium Potassium Chloride Carbon Dioxide Anion Gap BUN Creatinine Est GFR ( Amer) Est GFR (Non-Af Amer) Random Glucose Lactic Acid 3.3 H 1.7 Calcium Phosphorus Magnesium Total Bilirubin AST ALT Alkaline Phosphatase Total Protein Albumin Globulin Albumin/Globulin Ratio Procalcitonin Urine Color Urine Clarity Urine pH Ur Specific Duff Urine Protein Urine Glucose (UA) Urine Ketones Urine Blood Urine Nitrate Urine Bilirubin Urine Urobilinogen Ur Leukocyte Esterase Urine WBC (Auto) Urine RBC (Auto) Ur Squamous Epith Cells Urine Bacteria 12/18/18 12/18/1819 04:09 09:21 10:53 WBC RBC Hgb Hct MCV MCH MCHC RDW Plt Count MPV Neut % (Auto) Lymph % (Auto) [place] % (Auto) Eos % (Auto) Baso % (Auto) Neut # (Auto) Lymph # (Auto) [place] # (Auto) Eos # (Auto) Baso # (Auto) Neutrophils % (Manual) Band Neutrophils % Lymphocytes % (Manual) Monocytes % (Manual) Platelet Estimate RBC Morphology Sodium 135 Potassium 3.8 Chloride 108 H Carbon Dioxide 19 L Anion Gap 13 BUN 24 H Creatinine 1.6 H Est GFR ( Amer) 51 Est GFR (Non-Af Amer) 42 Random Glucose 337 H Lactic Acid Calcium 7.7 L Phosphorus 2.3 L Magnesium 1.5 L Total Bilirubin 0.7 AST 36 ALT 40 Alkaline Phosphatase 100 Total Protein 5.1 L Albumin 2.7 L D Globulin 2.4 Albumin/Globulin Ratio 1.1 Procalcitonin 18.14 H Urine Color Yellow Urine Clarity Hazy Urine pH 5.0 Ur Specific Duff 1.038 H Urine Protein Negative Urine Glucose (UA) 3+ H Urine Ketones Negative Urine Blood 2+ H Urine Nitrate Negative Urine Bilirubin Negative Urine Urobilinogen Normal Ur Leukocyte Esterase 3+ H Urine WBC (Auto) 178 H Urine RBC (Auto) 58 H Ur Squamous Epith Cells 1 Urine Bacteria Rare 12/18/18 15:00 WBC 19.2 H RBC 3.83 L Hgb 10.6 L Hct 31.9 L MCV 83.3 MCH 27.7 MCHC 33.3 RDW 13.8 Plt Count 70 L MPV 12.6 H Neut % (Auto) 89.1 H Lymph % (Auto) 7.5 L [place] % (Auto) 3.0 Eos % (Auto) 0.2 Baso % (Auto) 0.2 Neut # (Auto) 17.1 H Lymph # (Auto) 1.4 [place] # (Auto) 0.6 Eos # (Auto) 0.0 Baso # (Auto) 0.0 Neutrophils % (Manual) 94 H Band Neutrophils % Lymphocytes % (Manual) 3 L Monocytes % (Manual) 3 Platelet Estimate Decreased L RBC Morphology Normal Sodium Potassium Chloride Carbon Dioxide Anion Gap BUN Creatinine Est GFR ( Amer) Est GFR (Non-Af Amer) Random Glucose Lactic Acid Calcium Phosphorus Magnesium Total Bilirubin AST ALT Alkaline Phosphatase Total Protein Albumin Globulin Albumin/Globulin Ratio Procalcitonin Urine Color Urine Clarity Urine pH Ur Specific Duff Urine Protein Urine Glucose (UA) Urine Ketones Urine Blood Urine Nitrate Urine Bilirubin Urine Urobilinogen Ur Leukocyte Esterase Urine WBC (Auto) Urine RBC (Auto) Ur Squamous Epith Cells Urine Bacteria Assessment & Plan (1) Abdominal pain Status: Acute (2) Sepsis Status: Acute - Assessment and Plan (Free Text) Assessment: cont rx urosepsis follow up
[2018-12-20] MEDS: Piperacillin/Tazobact 3.375 GM in Sodium Chloride 100 ML IVPB SCH ×3 (03:03→17:48)
[2018-12-20 06:02] LABS: BASO % 0.1 % (0.0-2.0); EOS % 0.4 % (0.0-4.0); HEMOGLOBIN 10.8 g/dL (12.0-18.0); LYMPH # 1.1 K/uL (1.0-4.3); LYMPH % 7.8 % (20.0-40.0); MEAN CELL VOLUME 82.9 fL (80.0-94.0); MEAN CORPUSCULAR HEMOGLOBIN 27.5 pg (27.0-31.0); MEAN CORPUSCULAR HGB CONC 33.2 g/dL (33.0-37.0); MEAN PLATELET VOLUME 12.4 fL (7.2-11.7); MONO % 7.2 % (0.0-10.0); NEUT # 11.8 K/uL (1.8-7.0); NEUT % 84.5 % (50.0-75.0); PLATELET COUNT 75 K/uL (130-400); RBC 3.94 Mil/uL (4.40-5.90); RED CELL DISTRIBUTION WIDTH 13.6 % (11.5-14.5)
[2018-12-20 06:16] LABS: ALB/GLOB RATIO 1.2 (1.0-2.1); ALBUMIN 3.1 g/dL (3.5-5.0); ALT/SGPT 36 U/L (21-72); AST/SGOT 20 U/L (17-59); BLOOD UREA NITROGEN 12 mg/dL (9-20); CALCIUM 7.5 mg/dl (8.6-10.4); GFR NON-AFRICAN AMERICAN > 60
[2018-12-20 08:06] LABS: ANISOCYTOSIS SLIGHT; EOSINOPHIL 2 % (0-4); HYPOCHROMIC SLIGHT; LYMPHOCYTE 8 % (20-40); MONOCYTE 3 % (0-10); NEUTROPHIL 87 % (50-75); PLATELET ESTIMATE DECREASED (NORMAL); POIKILOCYTOSIS SLIGHT; TOTAL CELLS COUNTED 100
[2018-12-20] MEDS: (Novolin R) Insulin Human Regular 100 units/ml vial SC SCH ×4 (08:30→21:51)
[2018-12-20] MEDS ORDERED: Potassium & Sodium Phosphate PO STA (08:39)
[2018-12-20] MEDS ORDERED: Potassium Chloride 20 mEq ER Tab PO STA (08:39)
[2018-12-20] MEDS: Metoprolol Succinate 50 mg XL Tab PO SCH (09:13)
--- NOTE | 2018-12-20 18:34 | CP.PCM.PN ---
Subjective - Date & Time of Evaluation Date of Evaluation: 12/20/18 Time of Evaluation: 08:00 - Subjective Subjective: seen on rounds patient examined chart reviewed orders signed Objective - Vital Signs/Intake and Output Vital Signs (last 24 hours): Temp Pulse Resp BP Pulse Ox 98.2 F 79 78 H 153/71 H 98 12/20/18 16:00 12/20/18 16:00 12/20/18 16:00 12/20/18 16:00 12/20/18 16:00 Intake and Output: 12/20/18 12/20/18 06:59 18:59 Intake Total 600 270 Output Total 650 Balance 600 -380 - Medications Medications: Current Medications Acetaminophen (Tylenol 325mg Tab) 650 mg PO Q6 PRN PRN Reason: Fever >100.4 F Last Admin: 12/19/18 02:00 Dose: 650 mg Amlodipine Besylate (Norvasc) 2.5 mg PO DAILY [facility] Last Admin: 12/20/18 09:13 Dose: 2.5 mg Heparin Sodium (Porcine) (Heparin) 5,000 units SC Q8 [facility] Last Admin: 12/20/18 13:51 Dose: 5,000 units Piperacillin Sod/Tazobactam (Sod 3.375 gm/ Sodium Chloride) 100 mls @ 200 mls/hr IVPB Q8H [facility]; Protocol Last Admin: 12/20/18 17:48 Dose: 200 mls/hr Insulin Human Regular (Novolin R) 0 unit SC ACHS [facility]; Protocol Last Admin: 12/20/18 17:02 Dose: 2 u Metoprolol Succinate (Toprol Xl) 50 mg PO DAILY [facility] Last Admin: 12/20/18 09:13 Dose: 50 mg Pantoprazole Sodium (Protonix Inj) 40 mg IVP DAILY [facility] Last Admin: 12/20/18 09:13 Dose: 40 mg Tamsulosin HCl (Flomax) 0.4 mg PO DAILY [facility] - Labs Labs: 12/20/18 05:51 12/20/18 05:48 PT 13.3 SECONDS (9.7-12.2) H 12/17/18 22:28 INR 1.2 12/17/18 22:28 APTT 29.6 SECONDS (21-34) 12/17/18 22:28 - Constitutional Appears: Non-toxic, No Acute Distress, Chronically Ill - Head Exam Head Exam: ATRAUMATIC, NORMAL INSPECTION, NORMOCEPHALIC - Eye Exam Eye Exam: EOMI, Normal appearance, PERRL Pupil Exam: NORMAL ACCOMODATION, PERRL - ENT Exam ENT Exam: Mucous Membranes Moist, Normal Exam - Neck Exam Neck Exam: Full ROM, Normal Inspection. absent: Lymphadenopathy - Respiratory Exam Respiratory Exam: Clear to Ausculation Bilateral, NORMAL BREATHING PATTERN - Cardiovascular Exam Cardiovascular Exam: REGULAR RHYTHM, +S1, +S2. absent: Murmur - GI/Abdominal Exam GI & Abdominal Exam: Soft, Normal Bowel Sounds. absent: Tenderness - Rectal Exam Rectal Exam: Deferred - Exam Exam: NORMAL INSPECTION - Extremities Exam Extremities Exam: Full ROM, Normal Capillary Refill, Normal Inspection. absent: Joint Swelling, Pedal Edema - Back Exam Back Exam: NORMAL INSPECTION - Neurological Exam Neurological Exam: Alert, Awake, CN II-XII Intact, Normal Gait, Oriented x3 - Psychiatric Exam Psychiatric exam: Normal Affect, Normal Mood - Skin Skin Exam: Dry, Intact, Normal Color, Warm Assessment and Plan (1) Abdominal pain Status: Acute (2) Sepsis Status: Acute - Assessment and Plan (Free Text) Assessment: cont rx sid urosepsis 'recc: eval check PSA Imaging IV rx for 14 days
--- NOTE | 2018-12-20 19:17 | CP.PCM.PN ---
Subjective - Date & Time of Evaluation Date of Evaluation: 12/20/18 - Subjective Subjective: patient seen today no nausea, no vomiting, no dizziness, no diarrhea, no fever no shortness of breath Objective - Vital Signs/Intake and Output Vital Signs (last 24 hours): Temp Pulse Resp BP Pulse Ox 98.2 F 79 78 H 153/71 H 98 12/20/18 16:00 12/20/18 16:00 12/20/18 16:00 12/20/18 16:00 12/20/18 16:00 Intake and Output: 12/20/18 12/21/18 18:59 06:59 Intake Total 270 Output Total 650 Balance -380 - Medications Medications: Current Medications Acetaminophen (Tylenol 325mg Tab) 650 mg PO Q6 PRN PRN Reason: Fever >100.4 F Last Admin: 12/19/18 02:00 Dose: 650 mg Amlodipine Besylate (Norvasc) 2.5 mg PO DAILY [facility] Last Admin: 12/20/18 09:13 Dose: 2.5 mg Heparin Sodium (Porcine) (Heparin) 5,000 units SC Q8 [facility] Last Admin: 12/20/18 13:51 Dose: 5,000 units Cefepime HCl (Maxipime Iv 2 Gm Premix) 2 gm in 100 mls @ 200 mls/hr IVPB Q12H [facility]; Protocol Stop: 12/25/18 18:46 Insulin Human Regular (Novolin R) 0 unit SC ACHS [facility]; Protocol Last Admin: 12/20/18 17:02 Dose: 2 u Metoprolol Succinate (Toprol Xl) 50 mg PO DAILY [facility] Last Admin: 12/20/18 09:13 Dose: 50 mg Pantoprazole Sodium (Protonix Inj) 40 mg IVP DAILY [facility] Last Admin: 12/20/18 09:13 Dose: 40 mg Potassium Chloride (K-Dur 20 Meq Er Tab) 40 meq PO BRK [facility] Tamsulosin HCl (Flomax) 0.4 mg PO DAILY [facility] - Labs Labs: 12/20/18 05:51 12/20/18 05:48 PT 13.3 SECONDS (9.7-12.2) H 12/17/18 22:28 INR 1.2 12/17/18 22:28 APTT 29.6 SECONDS (21-34) 12/17/18 22:28 - Constitutional Appears: Well - Head Exam Head Exam: ATRAUMATIC, NORMAL INSPECTION, NORMOCEPHALIC - Eye Exam Eye Exam: EOMI, Normal appearance, PERRL Pupil Exam: NORMAL ACCOMODATION, PERRL - ENT Exam ENT Exam: Mucous Membranes Moist, Normal Exam - Neck Exam Neck Exam: Full ROM, Normal Inspection. absent: Lymphadenopathy - Respiratory Exam Respiratory Exam: Decreased Breath Sounds - Cardiovascular Exam Cardiovascular Exam: REGULAR RHYTHM, +S1, +S2 - GI/Abdominal Exam GI & Abdominal Exam: Soft, Diminished Bowel Sounds - Rectal Exam Rectal Exam: Deferred - Neurological Exam Neurological Exam: Oriented x3 Assessment and Plan - Assessment and Plan (Free Text) Plan: plan discussed with patient and family moderate to severe complexity of care flomax heparin k-dur maxipime norvasc novolon R protonix inj Sodium phosphate toprol xl tylenol medications reviewed labs reviewed vitals reviewed
[2018-12-20] MEDS: Potassium Chloride 20 mEq ER Tab PO SCH (19:39)
[2018-12-20] MEDS: Cefepime IV 2 gm in Dextrose 2 GM/100 ML BAG IVPB SCH (20:02)
[2018-12-21] MEDS: Cefepime IV 2 gm in Dextrose 2 GM/100 ML BAG IVPB SCH ×2 (05:59→18:33)
[2018-12-21 06:07] LABS: BASO % 0.3 % (0.0-2.0); EOS # 0.1 K/uL (0.0-0.7); EOS % 0.8 % (0.0-4.0); HEMOGLOBIN 10.9 g/dL (12.0-18.0); LYMPH # 1.3 K/uL (1.0-4.3); MEAN CELL VOLUME 81.9 fL (80.0-94.0); MEAN CORPUSCULAR HEMOGLOBIN 27.7 pg (27.0-31.0); MEAN CORPUSCULAR HGB CONC 33.8 g/dL (33.0-37.0); MEAN PLATELET VOLUME 11.9 fL (7.2-11.7); MONO # 1.2 K/uL (0.0-0.8); MONO % 11.7 % (0.0-10.0); NEUT % 75.2 % (50.0-75.0); RBC 3.92 Mil/uL (4.40-5.90); RED CELL DISTRIBUTION WIDTH 13.6 % (11.5-14.5); WHITE BLOOD COUNT 10.6 K/uL (4.8-10.8)
[2018-12-21 06:53] LABS: ALB/GLOB RATIO 1.2 (1.0-2.1); ALBUMIN 3.2 g/dL (3.5-5.0); ALT/SGPT 28 U/L (21-72); AST/SGOT 17 U/L (17-59); BLOOD UREA NITROGEN 11 mg/dL (9-20); CALCIUM 7.3 mg/dl (8.6-10.4); GFR NON-AFRICAN AMERICAN > 60
[2018-12-21 07:31] VITALS: RESP 20
[2018-12-21] MEDS: (Novolin R) Insulin Human Regular 100 units/ml vial SC SCH ×4 (07:58→21:17)
[2018-12-21] MEDS: Metoprolol Succinate 50 mg XL Tab PO SCH ×2 (07:58→10:02)
[2018-12-21] MEDS: Potassium Chloride 20 mEq ER Tab PO SCH (10:02)
[2018-12-21] MEDS ORDERED: Metoprolol Succinate 25 mg XL Tab PO ONE (12:00)
[2018-12-21] MEDS ORDERED: SODIUM PHOSPHATE IVPB ONE (18:00)
[2018-12-21] MEDS ORDERED: SODIUM CHLORIDE IVPB ONE (18:00)
[2018-12-21] MEDS ORDERED: Metoprolol Succinate 50 mg XL Tab PO SCH (18:00)
--- NOTE | 2018-12-21 18:22 | CP.PCM.PN ---
Subjective - Date & Time of Evaluation Date of Evaluation: 12/21/18 Time of Evaluation: 09:00 - Subjective Subjective: 78 y/o M with PMHx of DM2, HTN, BPH, osteoporosis, vertigo presented to ED from senior care home after he had complaints of abdominal pain for several days. he has been following with ENT doctor and had received steroid injection for R ear tinnitus. He was brought to ICU after code sepsis was called in ED as pt had WBC 21, lactate 5.8 and was hypotensive requiring levophed support. Objective - Vital Signs/Intake and Output Vital Signs (last 24 hours): Temp Pulse Resp BP Pulse Ox 102 F H 116 H 20 157/75 H 97 12/21/18 16:48 12/21/18 15:00 12/21/18 15:00 12/21/18 16:48 12/21/18 15:00 Intake and Output: 12/21/18 12/21/18 06:59 18:59 Output Total 300 Balance -300 - Medications Medications: Current Medications Acetaminophen (Tylenol 325mg Tab) 650 mg PO Q6 PRN PRN Reason: Fever >100.4 F Last Admin: 12/21/18 16:43 Dose: 650 mg Amlodipine Besylate (Norvasc) 5 mg PO DAILY [facility] Last Admin: 12/21/18 12:49 Dose: Not Given Heparin Sodium (Porcine) (Heparin) 5,000 units SC Q8 [facility] Last Admin: 12/21/18 14:32 Dose: Not Given Cefepime HCl (Maxipime Iv 2 Gm Premix) 2 gm in 100 mls @ 200 mls/hr IVPB Q12H [facility]; Protocol Stop: 12/25/18 18:46 Last Admin: 12/21/18 05:59 Dose: 200 mls/hr Sodium Phosphate 21 mmole/ (Sodium Chloride) 257 mls @ 50 mls/hr IVPB .Q5H9M ONE Stop: 12/21/18 23:08 Insulin Human Regular (Novolin R) 0 unit SC ACHS [facility]; Protocol Last Admin: 12/21/18 12:47 Dose: 4 u Metoprolol Succinate (Toprol Xl) 75 mg PO DAILY [facility] Pantoprazole Sodium (Protonix Inj) 40 mg IVP DAILY [facility] Last Admin: 12/21/18 10:02 Dose: 40 mg Potassium Chloride (K-Dur 20 Meq Er Tab) 40 meq PO BRK [facility] Last Admin: 12/21/18 10:02 Dose: 40 meq Tamsulosin HCl (Flomax) 0.4 mg PO DAILY [facility] Last Admin: 12/21/18 10:02 Dose: 0.4 mg - Labs Labs: 12/21/18 06:00 12/21/18 06:00 PT 13.3 SECONDS (9.7-12.2) H 12/17/18 22:28 INR 1.2 12/17/18 22:28 APTT 29.6 SECONDS (21-34) 12/17/18 22:28 - Constitutional Appears: Well - Head Exam Head Exam: ATRAUMATIC, NORMAL INSPECTION, NORMOCEPHALIC - Eye Exam Eye Exam: EOMI, Normal appearance, PERRL Pupil Exam: NORMAL ACCOMODATION, PERRL - ENT Exam ENT Exam: Mucous Membranes Moist, Normal Exam - Neck Exam Neck Exam: Full ROM, Normal Inspection. absent: Lymphadenopathy - Respiratory Exam Respiratory Exam: Clear to Ausculation Bilateral, NORMAL BREATHING PATTERN - Cardiovascular Exam Cardiovascular Exam: REGULAR RHYTHM, +S1, +S2. absent: Murmur - GI/Abdominal Exam GI & Abdominal Exam: Soft, Normal Bowel Sounds. absent: Tenderness - Rectal Exam Rectal Exam: Deferred - Exam Exam: NORMAL INSPECTION - Extremities Exam Extremities Exam: Full ROM, Normal Capillary Refill, Normal Inspection. absent: Joint Swelling, Pedal Edema - Back Exam Back Exam: NORMAL INSPECTION - Neurological Exam Neurological Exam: Alert, Awake, CN II-XII Intact, Normal Gait, Oriented x3 - Psychiatric Exam Psychiatric exam: Normal Affect, Normal Mood - Skin Skin Exam: Dry, Intact, Normal Color, Warm Assessment and Plan (1) Abdominal pain Status: Acute (2) Sepsis Status: Acute - Assessment and Plan (Free Text) Assessment: cont uiv rx foir 14 dahys min eval
--- NOTE | 2018-12-21 18:49 | CP.PCM.PN ---
Subjective - Date & Time of Evaluation Date of Evaluation: 12/21/18 - Subjective Subjective: patient examined today no nausea, no vomiting, no diarrhea, no dizziness, no fevr no shortness of breath Objective - Vital Signs/Intake and Output Vital Signs (last 24 hours): Temp Pulse Resp BP Pulse Ox 102 F H 116 H 20 157/75 H 97 12/21/18 16:48 12/21/18 15:00 12/21/18 15:00 12/21/18 16:48 12/21/18 15:00 Intake and Output: 12/21/18 12/21/18 06:59 18:59 Output Total 300 Balance -300 - Medications Medications: Current Medications Acetaminophen (Tylenol 325mg Tab) 650 mg PO Q6 PRN PRN Reason: Fever >100.4 F Last Admin: 12/21/18 16:43 Dose: 650 mg Amlodipine Besylate (Norvasc) 5 mg PO DAILY [facility] Last Admin: 12/21/18 12:49 Dose: Not Given Heparin Sodium (Porcine) (Heparin) 5,000 units SC Q8 [facility] Last Admin: 12/21/18 14:32 Dose: Not Given Cefepime HCl (Maxipime Iv 2 Gm Premix) 2 gm in 100 mls @ 200 mls/hr IVPB Q12H [facility]; Protocol Stop: 12/25/18 18:46 Last Admin: 12/21/18 18:33 Dose: 200 mls/hr Sodium Phosphate 21 mmole/ (Sodium Chloride) 257 mls @ 50 mls/hr IVPB .Q5H9M ONE Stop: 12/21/18 23:08 Last Admin: 12/21/18 18:33 Dose: 50 mls/hr Insulin Human Regular (Novolin R) 0 unit SC ACHS [facility]; Protocol Last Admin: 12/21/18 18:33 Dose: 2 u Metoprolol Succinate (Toprol Xl) 75 mg PO DAILY [facility] Pantoprazole Sodium (Protonix Inj) 40 mg IVP DAILY [facility] Last Admin: 12/21/18 10:02 Dose: 40 mg Potassium Chloride (K-Dur 20 Meq Er Tab) 40 meq PO BRK [facility] Last Admin: 12/21/18 10:02 Dose: 40 meq Tamsulosin HCl (Flomax) 0.4 mg PO DAILY [facility] Last Admin: 12/21/18 10:02 Dose: 0.4 mg - Labs Labs: 12/21/18 06:00 12/21/18 06:00 PT 13.3 SECONDS (9.7-12.2) H 12/17/18 22:28 INR 1.2 12/17/18 22:28 APTT 29.6 SECONDS (21-34) 12/17/18 22:28 - Constitutional Appears: Well - Head Exam Head Exam: ATRAUMATIC, NORMAL INSPECTION, NORMOCEPHALIC - Eye Exam Eye Exam: EOMI, Normal appearance, PERRL Pupil Exam: NORMAL ACCOMODATION, PERRL - ENT Exam ENT Exam: Mucous Membranes Moist, Normal Exam - Neck Exam Neck Exam: Full ROM, Normal Inspection. absent: Lymphadenopathy - Respiratory Exam Respiratory Exam: Decreased Breath Sounds - Cardiovascular Exam Cardiovascular Exam: REGULAR RHYTHM, +S1, +S2 - GI/Abdominal Exam GI & Abdominal Exam: Soft, Diminished Bowel Sounds - Rectal Exam Rectal Exam: Deferred - Neurological Exam Neurological Exam: Oriented x3 Assessment and Plan - Assessment and Plan (Free Text) Plan: plan discussed with patient and family moderate to severe complexity of care flomax heparin k-dur maxipime norvasc novolon R protonix inj Sodium phosphate toprol xl tylenol medications reviewed labs reviewed vitals reviewed
[2018-12-21 22:54] LABS: INTRACELLULAR PARASITE NEGATIVE (NEGATIVE)
[2018-12-22] MEDS: Cefepime IV 2 gm in Dextrose 2 GM/100 ML BAG IVPB SCH ×2 (06:09→18:56)
[2018-12-22 06:56] LABS: BASO # 0.1 K/uL (0.0-0.2); BASO % 0.4 % (0.0-2.0); EOS # 0.1 K/uL (0.0-0.7); EOS % 0.7 % (0.0-4.0); HEMOGLOBIN 10.5 g/dL (12.0-18.0); LYMPH # 1.4 K/uL (1.0-4.3); LYMPH % 9.8 % (20.0-40.0); MEAN CELL VOLUME 80.7 fL (80.0-94.0); MEAN CORPUSCULAR HGB CONC 33.5 g/dL (33.0-37.0); MEAN PLATELET VOLUME 11.5 fL (7.2-11.7); MONO # 1.6 K/uL (0.0-0.8); MONO % 11.1 % (0.0-10.0); NEUT # 11.3 K/uL (1.8-7.0); PLATELET COUNT 110 K/uL (130-400); RED CELL DISTRIBUTION WIDTH 13.7 % (11.5-14.5); WHITE BLOOD COUNT 14.5 K/uL (4.8-10.8)
[2018-12-22 07:10] LABS: ALB/GLOB RATIO 1.1 (1.0-2.1); ALBUMIN 3.1 g/dL (3.5-5.0); ALT/SGPT 26 U/L (21-72); AST/SGOT 13 U/L (17-59); BLOOD UREA NITROGEN 10 mg/dL (9-20); CALCIUM 7.9 mg/dl (8.6-10.4); GFR NON-AFRICAN AMERICAN > 60
[2018-12-22] MEDS: Potassium Chloride 20 mEq ER Tab PO SCH (08:28)
[2018-12-22] MEDS: (Novolin R) Insulin Human Regular 100 units/ml vial SC SCH ×4 (08:28→21:02)
[2018-12-22 08:57] LABS: BANDS 1 % (0-2); NEUTROPHIL 78 % (50-75); REACTIVE LYMPHOCYTES 1 % (0-0); TOTAL CELLS COUNTED 100
[2018-12-22 08:58] LABS: LYMPHOCYTE 9 % (20-40); MONOCYTE 11 % (0-10)
[2018-12-22 08:59] LABS: PLATELET ESTIMATE SLIGHTLY DECREASED (NORMAL)
[2018-12-22] MEDS: Metoprolol Succinate 25 mg XL Tab PO SCH (09:28)
--- NOTE | 2018-12-22 20:30 | CP.PCM.PN ---
Subjective - Date & Time of Evaluation Date of Evaluation: 12/22/18 Time of Evaluation: 08:10 - Subjective Subjective: patient examined today no nausea no fever no vomiting no dizziness no diarrhea no shortness of breath Objective - Vital Signs/Intake and Output Vital Signs (last 24 hours): Temp Pulse Resp BP Pulse Ox 97.8 F 78 20 132/75 96 12/22/18 15:00 12/22/18 15:00 12/22/18 15:00 12/22/18 15:00 12/22/18 15:00 - Medications Medications: Current Medications Acetaminophen (Tylenol 325mg Tab) 650 mg PO Q6 PRN PRN Reason: Fever >100.4 F Last Admin: 12/21/18 16:43 Dose: 650 mg Amlodipine Besylate (Norvasc) 5 mg PO DAILY [facility] Last Admin: 12/22/18 09:27 Dose: 5 mg Heparin Sodium (Porcine) (Heparin) 5,000 units SC Q8 [facility] Last Admin: 12/22/18 13:56 Dose: 5,000 units Cefepime HCl (Maxipime Iv 2 Gm Premix) 2 gm in 100 mls @ 200 mls/hr IVPB Q12H [facility]; Protocol Stop: 12/25/18 18:46 Last Admin: 12/22/18 18:56 Dose: 200 mls/hr Insulin Human Regular (Novolin R) 0 unit SC ACHS [facility]; Protocol Last Admin: 12/22/18 17:22 Dose: 3 units Metoprolol Succinate (Toprol Xl) 75 mg PO DAILY [facility] Last Admin: 12/22/18 09:28 Dose: 75 mg Pantoprazole Sodium (Protonix Inj) 40 mg IVP DAILY [facility] Last Admin: 12/22/18 09:27 Dose: 40 mg Potassium Chloride (K-Dur 20 Meq Er Tab) 40 meq PO BRK [facility] Last Admin: 12/22/18 08:28 Dose: 40 meq Tamsulosin HCl (Flomax) 0.4 mg PO DAILY [facility] Last Admin: 12/22/18 09:27 Dose: 0.4 mg - Labs Labs: 12/22/18 06:50 12/22/18 06:50 PT 13.3 SECONDS (9.7-12.2) H 12/17/18 22:28 INR 1.2 12/17/18 22:28 APTT 29.6 SECONDS (21-34) 12/17/18 22:28 - Constitutional Appears: Well - Head Exam Head Exam: ATRAUMATIC, NORMAL INSPECTION, NORMOCEPHALIC - Eye Exam Eye Exam: EOMI, Normal appearance, PERRL Pupil Exam: NORMAL ACCOMODATION, PERRL - ENT Exam ENT Exam: Mucous Membranes Moist, Normal Exam - Neck Exam Neck Exam: Full ROM, Normal Inspection. absent: Lymphadenopathy - Respiratory Exam Respiratory Exam: Decreased Breath Sounds - Cardiovascular Exam Cardiovascular Exam: REGULAR RHYTHM, +S1, +S2 - GI/Abdominal Exam GI & Abdominal Exam: Soft, Diminished Bowel Sounds - Rectal Exam Rectal Exam: Deferred - Neurological Exam Neurological Exam: Oriented x3 Assessment and Plan - Assessment and Plan (Free Text) Plan: plan discussed with patient and family moderate to severe complexity of care medications reviewed labs reviewed vitals reviewed flomax heparin k-dur maxipime norvasc novolon R protonix inj Sodium phosphate toprol xl tylenol
[2018-12-22] MEDS ORDERED: Potassium Chloride 20 mEq ER Tab PO STA (21:27)
[2018-12-23] MEDS: Cefepime IV 2 gm in Dextrose 2 GM/100 ML BAG IVPB SCH ×2 (05:50→18:35)
[2018-12-23 08:09] LABS: BASO # 0.1 K/uL (0.0-0.2); BASO % 0.7 % (0.0-2.0); EOS # 0.2 K/uL (0.0-0.7); EOS % 1.7 % (0.0-4.0); HEMOGLOBIN 10.7 g/dL (12.0-18.0); LYMPH # 1.4 K/uL (1.0-4.3); LYMPH % 11.3 % (20.0-40.0); MEAN CORPUSCULAR HEMOGLOBIN 27.3 pg (27.0-31.0); MEAN PLATELET VOLUME 11.8 fL (7.2-11.7); MONO # 1.4 K/uL (0.0-0.8); MONO % 11.3 % (0.0-10.0); NEUT # 9.3 K/uL (1.8-7.0); RBC 3.9 Mil/uL (4.40-5.90); RED CELL DISTRIBUTION WIDTH 13.8 % (11.5-14.5); WHITE BLOOD COUNT 12.5 K/uL (4.8-10.8)
[2018-12-23 08:21] LABS: MEAN CELL VOLUME 82.8 fL (80.0-94.0)
[2018-12-23] MEDS: (Novolin R) Insulin Human Regular 100 units/ml vial SC SCH ×4 (08:32→21:36)
[2018-12-23] MEDS: Metoprolol Succinate 25 mg XL Tab PO SCH (09:51)
[2018-12-23] MEDS: Potassium Chloride 20 mEq ER Tab PO SCH (09:52)
--- NOTE | 2018-12-23 16:59 | CP.PCM.PN ---
Subjective - Date & Time of Evaluation Date of Evaluation: 12/23/18 - Subjective Subjective: patient seen today no nausea, no dizziness, no diarrhea, no fever, no vomiting no shortness of breath Objective - Vital Signs/Intake and Output Vital Signs (last 24 hours): Temp Pulse Resp BP Pulse Ox 97.1 F L 75 20 162/80 H 96 12/23/18 16:33 12/23/18 16:33 12/23/18 16:33 12/23/18 16:33 12/23/18 16:33 Intake and Output: 12/23/18 12/23/18 06:59 18:59 Intake Total 500 Balance 500 - Medications Medications: Current Medications Acetaminophen (Tylenol 325mg Tab) 650 mg PO Q6 PRN PRN Reason: Fever >100.4 F Last Admin: 12/23/18 05:57 Dose: 650 mg Amlodipine Besylate (Norvasc) 5 mg PO DAILY [facility] Last Admin: 12/23/18 09:51 Dose: 5 mg Heparin Sodium (Porcine) (Heparin) 5,000 units SC Q8 [facility] Last Admin: 12/23/18 13:17 Dose: 5,000 units Cefepime HCl (Maxipime Iv 2 Gm Premix) 2 gm in 100 mls @ 200 mls/hr IVPB Q12H [facility]; Protocol Stop: 12/25/18 18:46 Last Admin: 12/23/18 05:50 Dose: 200 mls/hr Insulin Human Regular (Novolin R) 0 unit SC ACHS [facility]; Protocol Last Admin: 12/23/18 16:17 Dose: Not Given Metoprolol Succinate (Toprol Xl) 75 mg PO DAILY [facility] Last Admin: 12/23/18 09:51 Dose: 75 mg Pantoprazole Sodium (Protonix Inj) 40 mg IVP DAILY [facility] Last Admin: 12/23/18 09:53 Dose: 40 mg Potassium Chloride (K-Dur 20 Meq Er Tab) 40 meq PO BRK [facility] Last Admin: 12/23/18 09:52 Dose: 40 meq Tamsulosin HCl (Flomax) 0.4 mg PO DAILY [facility] Last Admin: 12/23/18 09:51 Dose: 0.4 mg - Labs Labs: 12/23/18 08:00 12/22/18 06:50 PT 13.3 SECONDS (9.7-12.2) H 12/17/18 22:28 INR 1.2 12/17/18 22:28 APTT 29.6 SECONDS (21-34) 12/17/18 22:28 - Constitutional Appears: Well - Head Exam Head Exam: ATRAUMATIC, NORMAL INSPECTION, NORMOCEPHALIC - Eye Exam Eye Exam: EOMI, Normal appearance, PERRL Pupil Exam: NORMAL ACCOMODATION, PERRL - ENT Exam ENT Exam: Mucous Membranes Moist, Normal Exam - Neck Exam Neck Exam: Full ROM, Normal Inspection. absent: Lymphadenopathy - Respiratory Exam Respiratory Exam: Decreased Breath Sounds - Cardiovascular Exam Cardiovascular Exam: REGULAR RHYTHM, +S1, +S2 - GI/Abdominal Exam GI & Abdominal Exam: Soft, Diminished Bowel Sounds - Rectal Exam Rectal Exam: Deferred - Neurological Exam Neurological Exam: Oriented x3 Assessment and Plan - Assessment and Plan (Free Text) Plan: flomax heparin k-dur maxipime norvasc novolon R protonix inj Sodium phosphate toprol xl tylenol plan discussed with patient moderate complexity of care medications reviewed labs reviewed vitals reviewed
--- NOTE | 2018-12-23 23:40 | CP.PCM.PN ---
Subjective - Date & Time of Evaluation Date of Evaluation: 12/23/18 Time of Evaluation: 08:00 - Subjective Subjective: iv rx in progress afebrile alert in NAD Objective - Vital Signs/Intake and Output Vital Signs (last 24 hours): Temp Pulse Resp BP Pulse Ox 97.1 F L 75 20 162/80 H 96 12/23/18 16:33 12/23/18 16:33 12/23/18 16:33 12/23/18 16:33 12/23/18 16:33 Intake and Output: 12/23/18 12/23/18 06:59 18:59 Intake Total 500 Balance 500 - Medications Medications: Current Medications Acetaminophen (Tylenol 325mg Tab) 650 mg PO Q6 PRN PRN Reason: Fever >100.4 F Last Admin: 12/23/18 05:57 Dose: 650 mg Amlodipine Besylate (Norvasc) 5 mg PO DAILY [facility] Last Admin: 12/23/18 09:51 Dose: 5 mg Heparin Sodium (Porcine) (Heparin) 5,000 units SC Q8 [facility] Last Admin: 12/23/18 13:17 Dose: 5,000 units Cefepime HCl (Maxipime Iv 2 Gm Premix) 2 gm in 100 mls @ 200 mls/hr IVPB Q12H [facility]; Protocol Stop: 12/25/18 18:46 Last Admin: 12/23/18 05:50 Dose: 200 mls/hr Insulin Human Regular (Novolin R) 0 unit SC ACHS [facility]; Protocol Last Admin: 12/23/18 16:17 Dose: Not Given Metoprolol Succinate (Toprol Xl) 75 mg PO DAILY [facility] Last Admin: 12/23/18 09:51 Dose: 75 mg Pantoprazole Sodium (Protonix Inj) 40 mg IVP DAILY [facility] Last Admin: 12/23/18 09:53 Dose: 40 mg Potassium Chloride (K-Dur 20 Meq Er Tab) 40 meq PO BRK [facility] Last Admin: 12/23/18 09:52 Dose: 40 meq Tamsulosin HCl (Flomax) 0.4 mg PO DAILY [facility] Last Admin: 12/23/18 09:51 Dose: 0.4 mg - Labs Labs: 12/23/18 08:00 12/22/18 06:50 PT 13.3 SECONDS (9.7-12.2) H 12/17/18 22:28 INR 1.2 05/20/19 22:28 APTT 29.6 SECONDS (21-34) 12/17/18 22:28 - Constitutional Appears: Non-toxic, Chronically Ill - Head Exam Head Exam: ATRAUMATIC, NORMAL INSPECTION, NORMOCEPHALIC - Eye Exam Eye Exam: EOMI, Normal appearance, PERRL Pupil Exam: NORMAL ACCOMODATION, PERRL - ENT Exam ENT Exam: Mucous Membranes Moist, Normal Exam - Neck Exam Neck Exam: Full ROM, Normal Inspection. absent: Lymphadenopathy - Respiratory Exam Respiratory Exam: Clear to Ausculation Bilateral, NORMAL BREATHING PATTERN - Cardiovascular Exam Cardiovascular Exam: REGULAR RHYTHM, +S1, +S2. absent: Murmur - GI/Abdominal Exam GI & Abdominal Exam: Soft, Normal Bowel Sounds. absent: Tenderness - Rectal Exam Rectal Exam: Deferred - Exam Exam: NORMAL INSPECTION - Extremities Exam Extremities Exam: Full ROM, Normal Capillary Refill, Normal Inspection. absent: Joint Swelling, Pedal Edema - Back Exam Back Exam: NORMAL INSPECTION - Neurological Exam Neurological Exam: Alert, Awake, CN II-XII Intact, Normal Gait, Oriented x3 - Psychiatric Exam Psychiatric exam: Normal Affect, Normal Mood - Skin Skin Exam: Dry, Intact, Normal Color, Warm Assessment and Plan (1) Abdominal pain Status: Acute (2) Sepsis Status: Acute - Assessment and Plan (Free Text) Assessment: cont rx urosepsos / bacteremia re-eval
[2018-12-24] MEDS: Cefepime IV 2 gm in Dextrose 2 GM/100 ML BAG IVPB SCH ×2 (06:19→18:02)
[2018-12-24 07:58] LABS: BASO # 0.1 K/uL (0.0-0.2); BASO % 0.7 % (0.0-2.0); EOS # 0.3 K/uL (0.0-0.7); EOS % 2.4 % (0.0-4.0); HEMOGLOBIN 11.2 g/dL (12.0-18.0); LYMPH # 1.5 K/uL (1.0-4.3); LYMPH % 12.5 % (20.0-40.0); MEAN CELL VOLUME 81.9 fL (80.0-94.0); MEAN CORPUSCULAR HEMOGLOBIN 27.3 pg (27.0-31.0); MEAN CORPUSCULAR HGB CONC 33.4 g/dL (33.0-37.0); MEAN PLATELET VOLUME 10.7 fL (7.2-11.7); MONO # 1.2 K/uL (0.0-0.8); MONO % 9.9 % (0.0-10.0); NEUT # 8.9 K/uL (1.8-7.0); NEUT % 74.5 % (50.0-75.0); RBC 4.11 Mil/uL (4.40-5.90); RED CELL DISTRIBUTION WIDTH 14.1 % (11.5-14.5)
[2018-12-24] MEDS: (Novolin R) Insulin Human Regular 100 units/ml vial SC SCH ×4 (08:24→21:32)
[2018-12-24] MEDS: Potassium Chloride 20 mEq ER Tab PO SCH (08:39)
[2018-12-24 08:51] LABS: ALB/GLOB RATIO 1.2 (1.0-2.1); ALBUMIN 3.5 g/dL (3.5-5.0); ALT/SGPT 21 U/L (21-72); AST/SGOT 30 U/L (17-59); BLOOD UREA NITROGEN 12 mg/dL (9-20); CALCIUM 8.3 mg/dl (8.6-10.4); GFR NON-AFRICAN AMERICAN > 60
[2018-12-24] MEDS: Metoprolol Succinate 25 mg XL Tab PO SCH (09:08)
--- NOTE | 2018-12-24 16:36 | CP.PCM.PN ---
Subjective - Date & Time of Evaluation Date of Evaluation: 12/24/18 Time of Evaluation: 09:30 - Subjective Subjective: patient seen today no nausea no vomiting no dizziness no diarrhea no fever no shortness of breath Objective - Vital Signs/Intake and Output Vital Signs (last 24 hours): Temp Pulse Resp BP Pulse Ox 97.5 F L 76 20 126/68 97 12/24/18 15:00 12/24/18 15:00 12/24/18 15:00 12/24/18 15:00 12/24/18 15:00 Intake and Output: 12/24/18 12/24/18 06:59 18:59 Intake Total 500 Balance 500 - Medications Medications: Current Medications Acetaminophen (Tylenol 325mg Tab) 650 mg PO Q6 PRN PRN Reason: Fever >100.4 F Last Admin: 12/23/18 05:57 Dose: 650 mg Amlodipine Besylate (Norvasc) 5 mg PO DAILY [facility] Last Admin: 12/24/18 09:08 Dose: 5 mg Heparin Sodium (Porcine) (Heparin) 5,000 units SC Q8 [facility] Last Admin: 12/24/18 13:17 Dose: 5,000 units Cefepime HCl (Maxipime Iv 2 Gm Premix) 2 gm in 100 mls @ 200 mls/hr IVPB Q12H [facility]; Protocol Stop: 12/25/18 18:46 Last Admin: 12/24/18 06:19 Dose: 200 mls/hr Insulin Human Regular (Novolin R) 0 unit SC ACHS [facility]; Protocol Last Admin: 12/24/18 12:25 Dose: 3 units Metoprolol Succinate (Toprol Xl) 75 mg PO DAILY [facility] Last Admin: 12/24/18 09:08 Dose: 75 mg Pantoprazole Sodium (Protonix Inj) 40 mg IVP DAILY [facility] Last Admin: 12/24/18 09:08 Dose: 40 mg Potassium Chloride (K-Dur 20 Meq Er Tab) 40 meq PO BRK [facility] Last Admin: 12/24/18 08:39 Dose: 40 meq Tamsulosin HCl (Flomax) 0.4 mg PO DAILY [facility] Last Admin: 12/24/18 09:08 Dose: 0.4 mg - Labs Labs: 12/24/18 07:50 12/24/18 07:50 PT 13.3 SECONDS (9.7-12.2) H 12/17/18 22:28 INR 1.2 12/17/18 22:28 APTT 29.6 SECONDS (21-34) 12/17/18 22:28 - Constitutional Appears: Well - Head Exam Head Exam: ATRAUMATIC, NORMAL INSPECTION, NORMOCEPHALIC - Eye Exam Eye Exam: EOMI, Normal appearance, PERRL Pupil Exam: NORMAL ACCOMODATION, PERRL - ENT Exam ENT Exam: Mucous Membranes Moist, Normal Exam - Neck Exam Neck Exam: Full ROM, Normal Inspection. absent: Lymphadenopathy - Respiratory Exam Respiratory Exam: Decreased Breath Sounds - Cardiovascular Exam Cardiovascular Exam: REGULAR RHYTHM, +S1, +S2 - GI/Abdominal Exam GI & Abdominal Exam: Soft, Diminished Bowel Sounds - Rectal Exam Rectal Exam: Deferred - Neurological Exam Neurological Exam: Oriented x3 Assessment and Plan - Assessment and Plan (Free Text) Plan: plan discussed with patient moderate complexity of care medications reviewed labs reviewed vitals reviewed flomax heparin k-dur maxipime norvasc novolon R protonix inj Sodium phosphate toprol xl tylenol
[2018-12-25] MEDS: Cefepime IV 2 gm in Dextrose 2 GM/100 ML BAG IVPB SCH ×2 (05:47→17:20)
[2018-12-25 06:36] LABS: BASO # 0.1 K/uL (0.0-0.2); BASO % 0.6 % (0.0-2.0); EOS # 0.2 K/uL (0.0-0.7); EOS % 1.9 % (0.0-4.0); HEMOGLOBIN 11.1 g/dL (12.0-18.0); MEAN CELL VOLUME 81.7 fL (80.0-94.0); MEAN CORPUSCULAR HEMOGLOBIN 27.1 pg (27.0-31.0); MEAN CORPUSCULAR HGB CONC 33.1 g/dL (33.0-37.0); MONO % 8.7 % (0.0-10.0); NEUT # 7.9 K/uL (1.8-7.0); NEUT % 70.8 % (50.0-75.0); RBC 4.09 Mil/uL (4.40-5.90); RED CELL DISTRIBUTION WIDTH 13.9 % (11.5-14.5); WHITE BLOOD COUNT 11.2 K/uL (4.8-10.8)
[2018-12-25 06:42] LABS: ALB/GLOB RATIO 1.2 (1.0-2.1); ALBUMIN 3.5 g/dL (3.5-5.0); ALT/SGPT 21 U/L (21-72); AST/SGOT 26 U/L (17-59); BLOOD UREA NITROGEN 14 mg/dL (9-20); CALCIUM 8.3 mg/dl (8.6-10.4); GFR NON-AFRICAN AMERICAN > 60
[2018-12-25] MEDS: Potassium Chloride 20 mEq ER Tab PO SCH (07:46)
[2018-12-25] MEDS: (Novolin R) Insulin Human Regular 100 units/ml vial SC SCH ×3 (08:36→17:21)
[2018-12-25] MEDS: Metoprolol Succinate 25 mg XL Tab PO SCH (09:51)
--- NOTE | 2018-12-25 12:14 | CP.PCM.PN ---
Subjective - Date & Time of Evaluation Date of Evaluation: 12/25/18 Time of Evaluation: 08:00 - Subjective Subjective: febrile in NAD Objective - Vital Signs/Intake and Output Vital Signs (last 24 hours): Temp Pulse Resp BP Pulse Ox 97.4 F L 74 20 151/75 H 97 12/25/18 07:01 12/25/18 07:01 12/25/18 07:01 12/25/18 07:01 12/25/18 07:01 Intake and Output: 12/25/18 12/25/18 06:59 18:59 Intake Total 600 Balance 600 - Medications Medications: Current Medications Acetaminophen (Tylenol 325mg Tab) 650 mg PO Q6 PRN PRN Reason: Fever >100.4 F Last Admin: 12/25/18 07:49 Dose: 650 mg Amlodipine Besylate (Norvasc) 5 mg PO DAILY [facility] Last Admin: 12/25/18 09:51 Dose: 5 mg Heparin Sodium (Porcine) (Heparin) 5,000 units SC Q8 [facility] Last Admin: 12/25/18 05:47 Dose: 5,000 units Cefepime HCl (Maxipime Iv 2 Gm Premix) 2 gm in 100 mls @ 200 mls/hr IVPB Q12H [facility]; Protocol Stop: 12/25/18 18:46 Last Admin: 12/25/18 05:47 Dose: 200 mls/hr Insulin Human Regular (Novolin R) 0 unit SC ACHS [facility]; Protocol Last Admin: 12/25/18 11:36 Dose: 3 units Metoprolol Succinate (Toprol Xl) 75 mg PO DAILY [facility] Last Admin: 12/25/18 09:51 Dose: 75 mg Pantoprazole Sodium (Protonix Inj) 40 mg IVP DAILY [facility] Last Admin: 12/25/18 09:52 Dose: 40 mg Potassium Chloride (K-Dur 20 Meq Er Tab) 40 meq PO BRK [facility] Last Admin: 12/25/18 07:46 Dose: 40 meq Tamsulosin HCl (Flomax) 0.4 mg PO DAILY [facility] Last Admin: 12/25/18 09:51 Dose: 0.4 mg - Labs Labs: 12/25/18 06:17 12/25/18 06:17 PT 13.3 SECONDS (9.7-12.2) H 12/17/18 22:28 INR 1.2 12/17/18 22:28 APTT 29.6 SECONDS (21-34) 12/17/18 22:28 - Constitutional Appears: Non-toxic, No Acute Distress, Chronically Ill - Head Exam Head Exam: ATRAUMATIC, NORMAL INSPECTION, NORMOCEPHALIC - Eye Exam Eye Exam: EOMI, Normal appearance, PERRL Pupil Exam: NORMAL ACCOMODATION, PERRL - ENT Exam ENT Exam: Mucous Membranes Moist, Normal Exam - Neck Exam Neck Exam: Full ROM, Normal Inspection. absent: Lymphadenopathy - Respiratory Exam Respiratory Exam: Clear to Ausculation Bilateral, NORMAL BREATHING PATTERN - Cardiovascular Exam Cardiovascular Exam: REGULAR RHYTHM, +S1, +S2. absent: Murmur - GI/Abdominal Exam GI & Abdominal Exam: Soft, Normal Bowel Sounds. absent: Tenderness - Rectal Exam Rectal Exam: Deferred - Exam Exam: NORMAL INSPECTION - Extremities Exam Extremities Exam: Full ROM, Normal Capillary Refill, Normal Inspection. absent: Joint Swelling, Pedal Edema - Back Exam Back Exam: NORMAL INSPECTION - Neurological Exam Neurological Exam: Alert, Awake, CN II-XII Intact, Normal Gait, Oriented x3 - Psychiatric Exam Psychiatric exam: Normal Affect, Normal Mood - Skin Skin Exam: Dry, Intact, Normal Color, Warm Assessment and Plan (1) Abdominal pain Status: Acute (2) Sepsis Status: Acute - Assessment and Plan (Free Text) Assessment: need to cont iv rx min 14 days consider eval- consider further imaging 'may need longer course of rx
--- NOTE | 2018-12-25 12:41 | CP.PCM.PN ---
Subjective - Date & Time of Evaluation Date of Evaluation: 12/25/18 Time of Evaluation: 07:30 - Subjective Subjective: patient examined today no nausea no vomiting no dizziness no diarrhea no fever no shortness of breath Objective - Vital Signs/Intake and Output Vital Signs (last 24 hours): Temp Pulse Resp BP Pulse Ox 97.4 F L 74 20 151/75 H 97 12/25/18 07:01 12/25/18 07:01 12/25/18 07:01 12/25/18 07:01 12/25/18 07:01 Intake and Output: 12/25/18 12/25/18 06:59 18:59 Intake Total 600 Balance 600 - Medications Medications: Current Medications Acetaminophen (Tylenol 325mg Tab) 650 mg PO Q6 PRN PRN Reason: Fever >100.4 F Last Admin: 12/25/18 07:49 Dose: 650 mg Amlodipine Besylate (Norvasc) 5 mg PO DAILY [facility] Last Admin: 12/25/18 09:51 Dose: 5 mg Heparin Sodium (Porcine) (Heparin) 5,000 units SC Q8 [facility] Last Admin: 12/25/18 05:47 Dose: 5,000 units Cefepime HCl (Maxipime Iv 2 Gm Premix) 2 gm in 100 mls @ 200 mls/hr IVPB Q12H [facility]; Protocol Stop: 12/25/18 18:46 Last Admin: 12/25/18 05:47 Dose: 200 mls/hr Insulin Human Regular (Novolin R) 0 unit SC ACHS [facility]; Protocol Last Admin: 12/25/18 11:36 Dose: 3 units Metoprolol Succinate (Toprol Xl) 75 mg PO DAILY [facility] Last Admin: 12/25/18 09:51 Dose: 75 mg Pantoprazole Sodium (Protonix Inj) 40 mg IVP DAILY [facility] Last Admin: 12/25/18 09:52 Dose: 40 mg Potassium Chloride (K-Dur 20 Meq Er Tab) 40 meq PO BRK [facility] Last Admin: 12/25/18 07:46 Dose: 40 meq Tamsulosin HCl (Flomax) 0.4 mg PO DAILY [facility] Last Admin: 12/25/18 09:51 Dose: 0.4 mg - Labs Labs: 12/25/18 06:17 12/25/18 06:17 PT 13.3 SECONDS (9.7-12.2) H 12/17/18 22:28 INR 1.2 12/17/18 22:28 APTT 29.6 SECONDS (21-34) 12/17/18 22:28 - Constitutional Appears: Well - Head Exam Head Exam: ATRAUMATIC, NORMAL INSPECTION, NORMOCEPHALIC - Eye Exam Eye Exam: EOMI, Normal appearance, PERRL Pupil Exam: NORMAL ACCOMODATION, PERRL - ENT Exam ENT Exam: Mucous Membranes Moist, Normal Exam - Neck Exam Neck Exam: Full ROM, Normal Inspection. absent: Lymphadenopathy - Respiratory Exam Respiratory Exam: Decreased Breath Sounds - Cardiovascular Exam Cardiovascular Exam: REGULAR RHYTHM, +S1, +S2 - GI/Abdominal Exam GI & Abdominal Exam: Soft, Diminished Bowel Sounds - Rectal Exam Rectal Exam: Deferred - Neurological Exam Neurological Exam: Oriented x3 Assessment and Plan - Assessment and Plan (Free Text) Plan: plan discussed with patient moderate complexity of care flomax heparin k-dur maximpime norvasc novolin R protonix inj toprol xl tylenol medications reviewed labs reviewed vitals reviewed
[2018-12-25 15:27] VITALS: BP 129/74; PULSE 70; TEMP 97.3; O2SAT 100
--- NOTE | 2018-12-25 17:08 | CP.PCM.PN ---
Subjective - Date & Time of Evaluation Date of Evaluation: 12/25/18 Time of Evaluation: 17:09 - Subjective Subjective: 78 y/o M with PMHx of DM2, HTN, BPH, hypotension, osteoporosis, vertigo [facility] after he had complaints of abdominal pain for several days. He reports that he had taken miralax powder and had a large bowel movement prior to arrival at ED. He also reports he has been following with ENT doctor and had received steroid injection for R ear tinnitus. He was brought to ICU after code sepsis was called in ED as pt had WBC 21, lactate 5.8 and was hypotensive requiring levophed support. He had received IVF, empiric antibiotics. Pt seen and examined. Pt stable with no complaints at this time or s/s of infections. Objective - Vital Signs/Intake and Output Vital Signs (last 24 hours): Temp Pulse Resp BP Pulse Ox 97.3 F L 70 20 129/74 100 12/25/18 15:00 12/25/18 15:00 12/25/18 15:00 12/25/18 15:00 12/25/18 15:00 Intake and Output: 12/25/18 12/25/18 06:59 18:59 Intake Total 600 350 Balance 600 350 - Medications Medications: Current Medications Acetaminophen (Tylenol 325mg Tab) 650 mg PO Q6 PRN PRN Reason: Fever >100.4 F Last Admin: 12/25/18 07:49 Dose: 650 mg Amlodipine Besylate (Norvasc) 5 mg PO DAILY [facility] Last Admin: 12/25/18 09:51 Dose: 5 mg Cefepime HCl (Maxipime Iv 2 Gm Premix) 2 gm in 100 mls @ 200 mls/hr IVPB Q12H [facility]; Protocol Stop: 12/25/18 18:46 Last Admin: 12/25/18 05:47 Dose: 200 mls/hr Insulin Human Regular (Novolin R) 0 unit SC ACHS [facility]; Protocol Last Admin: 12/25/18 11:36 Dose: 3 units Metoprolol Succinate (Toprol Xl) 75 mg PO DAILY [facility] Last Admin: 12/25/18 09:51 Dose: 75 mg Pantoprazole Sodium (Protonix Inj) 40 mg IVP DAILY [facility] Last Admin: 12/25/18 09:52 Dose: 40 mg Potassium Chloride (K-Dur 20 Meq Er Tab) 40 meq PO BRK [facility] Last Admin: 12/25/18 07:46 Dose: 40 meq Tamsulosin HCl (Flomax) 0.4 mg PO DAILY [facility] Last Admin: 12/25/18 09:51 Dose: 0.4 mg - Labs Labs: 12/25/18 06:17 12/25/18 06:17 PT 13.3 SECONDS (9.7-12.2) H 12/17/18 22:28 INR 1.2 12/17/18 22:28 APTT 29.6 SECONDS (21-34) 12/17/18 22:28 Assessment and Plan - Assessment and Plan (Free Text) Assessment: pt alert and oriented x3. Respirations easy and unlabored. Abdomen soft and non- tender. VSS, labs reviewed. PICC line patent. Discharged discussed with patient and family. Dr. Lowery, Dr. Cifuentes both cleared patient to be discharged. Dr. Cifuentes made aware of PSA level and will follow up. Plan: Follow up with Dr. Hermilo Randall in 1 week Follow up with Dr. Lowery in 2-3 weeks Follow up with Dr. Cifuentes in 2-3 weeks [facility] infusion nurse notified and updated on antibiotics order and pt discharged 12/25 Resume home medications New prescriptions Metoprolol 75mg PO daily Norvasc 5mg PO daily Cefepime 2GRAM IVPB x9days Call Dr. Hermilo Randall or go to the emergancy room if symptoms return or worsen Discuss with patient and family at the bedside who agree and verbalized understanding
--- NOTE | 2018-12-25 20:28 | CP.PCM.DIS ---
Provider - Provider Date of Admission: 12/18/18 01:59 Attending physician: Torres Randall MD Consults: 12/18/18 09:44 Otolaryngology Consult Routine Consulting Provider: Roni Kaufman Consulting Physician: Roni Kaufman Reason for Consult: ear infection and pain, code sepsis 12/18/18 13:06 Infectious Disease Consult Routine Comment: Consulting Provider: Victor M Lowery Consulting Physician: Victor M Lowery Reason for Consult: bacteremic, septic shock 12/18/18 18:57 Physician Consult Routine Comment: Consulting Provider: Stevie Heard Consulting Physician: Stevie Heard Reason for Consult: code sepsis Additional Comments: septic shock 12/24/18 00:09 Urology Consult Routine Comment: Consulting Provider: Luis Enrique Cifuentes Consulting Physician: Luis Enrique Cifuentes Reason for Consult: urosepsis elevated PSA Time Spent in preparation of Discharge (in minutes): 30 Hospital Course - Lab Results Lab Results: Micro Results 12/22/18 05:50 Blood-Venous Blood Culture - Preliminary NO GROWTH AFTER 3 DAYS 12/22/18 06:50 Blood-Venous Blood Culture - Preliminary NO GROWTH AFTER 3 DAYS 12/21/18 21:11 Urine,Clean Catch Urine Culture - Final No Growth (<1,000 CFU/ML) 12/21/18 07:43 Nose MRSA Culture - Final MRSA NOT DETECTED 12/18/18 09:21 Urine,Clean Catch Urine Culture - Final Morg Morganii Ss Morganii 12/17/18 22:30 Blood Blood Culture - Final Morg Morganii Ss Morganii 12/17/18 22:30 Blood Gram Stain - Final 12/17/18 22:00 Blood Blood Culture - Final Morg Morganii Ss Morganii 12/17/18 22:00 Blood Gram Stain - Final 12/18/18 06:00 Nose MRSA Culture (Admit) - Final MRSA NOT DETECTED Most Recent Lab Values WBC 11.2 K/uL (4.8-10.8) H 12/25/18 06:17 RBC 4.09 Mil/uL (4.40-5.90) L 12/25/18 06:17 Hgb 11.1 g/dL (12.0-18.0) L 12/25/18 06:17 Hct 33.5 % (35.0-51.0) L 12/25/18 06:17 MCV 81.7 fL (80.0-94.0) 12/25/18 06:17 MCH 27.1 pg (27.0-31.0) 12/25/18 06:17 MCHC 33.1 g/dL (33.0-37.0) 12/25/18 06:17 RDW 13.9 % (11.5-14.5) 12/25/18 06:17 Plt Count 285 K/uL (130-400) 12/25/18 06:17 Manual Plt Count 67 K/uL (130-400) L 12/19/18 08:08 MPV 11.0 fL (7.2-11.7) 12/25/18 06:17 Neut % (Auto) 70.8 % (50.0-75.0) 12/25/18 06:17 Lymph % (Auto) 18.0 % (20.0-40.0) L 12/25/18 06:17 [place] % (Auto) 8.7 % (0.0-10.0) 12/25/18 06:17 Eos % (Auto) 1.9 % (0.0-4.0) 12/25/18 06:17 Baso % (Auto) 0.6 % (0.0-2.0) 12/25/18 06:17 Neut # (Auto) 7.9 K/uL (1.8-7.0) H 12/25/18 06:17 Lymph # (Auto) 2.0 K/uL (1.0-4.3) 12/25/18 06:17 [place] # (Auto) 1.0 K/uL (0.0-0.8) H 12/25/18 06:17 Eos # (Auto) 0.2 K/uL (0.0-0.7) 12/25/18 06:17 Baso # (Auto) 0.1 K/uL (0.0-0.2) 12/25/18 06:17 Neutrophils % (Manual) 78 % (50-75) H 12/22/18 06:50 Band Neutrophils % 1 % (0-2) 12/22/18 06:50 Lymphocytes % (Manual) 9 % (20-40) L 12/22/18 06:50 Reactive Lymphs % 1 % (0-0) H 12/22/18 06:50 Monocytes % (Manual) 11 % (0-10) H 12/22/18 06:50 Eosinophils % (Manual) 2 % (0-4) 12/20/18 05:51 Differential Comment 12/21/18 06:00 Platelet Estimate Slightly decreased (NORMAL) L 12/22/18 06:50 RBC Morphology Normal 12/22/18 06:50 Hypochromasia (manual) Slight 12/20/18 05:51 Poikilocytosis (manual Slight 12/20/18 05:51 Anisocytosis (manual) Slight 12/20/18 05:51 PT 13.3 SECONDS (9.7-12.2) H 12/17/18 22:28 INR 1.2 12/17/18 22:28 APTT 29.6 SECONDS (21-34) 12/17/18 22:28 pO2 29 mm/Hg (30-55) L 12/17/18 23:45 VBG pH 7.37 (7.32-7.43) 12/17/18 23:45 VBG pCO2 33 mmHg (40-60) L 12/17/18 23:45 VBG HCO3 19.6 mmol/L 12/17/18 23:45 VBG Total CO2 20.1 mmol/L (22-28) L 12/17/18 23:45 VBG O2 Sat (Calc) 57.4 % (40-65) 12/17/18 23:45 VBG Base Excess -5.3 mmol/L (0.0-2.0) L 12/17/18 23:45 VBG Potassium 3.7 mmol/L (3.6-5.2) 12/17/18 23:45 Sodium 138.0 mmol/l (132-148) 12/17/18 23:45 Chloride 95.0 mmol/L (98-107) L 12/17/18 23:45 Glucose 328 mg/dl (75-110) H 12/17/18 23:45 Lactate 5.8 mmol/L (0.7-2.1) H* 12/17/18 23:45 Crit Value Called To Dr goodman 12/17/18 23:45 Crit Value Called By Lev marion/rt 12/17/18 23:45 Crit Value Read Back Y 12/17/18 23:45 Blood Gas Notified Time 0033 12/17/18 23:45 Sodium 138 mmol/L (132-148) 12/25/18 06:17 Potassium 4.2 mmol/L (3.6-5.2) 12/25/18 06:17 Chloride 105 mmol/L (98-107) 12/25/18 06:17 Carbon Dioxide 23 mmol/L (22-30) 12/25/18 06:17 Anion Gap 14 (10-20) 12/25/18 06:17 BUN 14 mg/dL (9-20) 12/25/18 06:17 Creatinine 0.9 mg/dL (0.8-1.5) 12/25/18 06:17 Est GFR ( Amer) > 60 12/25/18 06:17 Est GFR (Non-Af Amer) > 60 12/25/18 06:17 POC Glucose (mg/dL) 193 mg/dL (65-110) H 12/25/18 15:55 Random Glucose 159 mg/dL (75-110) H 12/25/18 06:17 Lactic Acid 0.9 mmol/L (0.7-2.1) 12/19/18 08:08 Calcium 8.3 mg/dl (8.6-10.4) L 12/25/18 06:17 Phosphorus 2.4 mg/dL (2.5-4.5) L 12/25/18 06:17 Magnesium 1.7 mg/dL (1.6-2.3) 12/22/18 06:50 Total Bilirubin 0.5 mg/dL (0.2-1.3) 12/25/18 06:17 AST 26 U/L (17-59) 12/25/18 06:17 ALT 21 U/L (21-72) 12/25/18 06:17 Alkaline Phosphatase 87 U/L (38-126) 12/25/18 06:17 Troponin I 0.0800 ng/mL (0.00-0.120) 12/17/18 22:28 NT-Pro-B Natriuret Pep 1960 pg/mL (0-900) H 12/17/18 22:28 Total Protein 6.4 g/dL (6.3-8.3) 12/25/18 06:17 Albumin 3.5 g/dL (3.5-5.0) 12/25/18 06:17 Globulin 2.9 gm/dL (2.2-3.9) 12/25/18 06:17 Albumin/Globulin Ratio 1.2 (1.0-2.1) 12/25/18 06:17 Lipase 177 U/L (23-300) 12/17/18 22:28 Prostate Specific Ag 6.71 ng/mL (0.00-4.0) H 12/22/18 06:50 Procalcitonin 7.60 NG/ML (0.19-0.49) H 12/19/18 08:58 Venous Blood Potassium 3.7 mmol/L (3.6-5.2) 12/17/18 23:45 Urine Color Yellow (YELLOW) 12/18/18 09:21 Urine Clarity Hazy (Clear) 12/18/18 09:21 Urine pH 5.0 (5.0-8.0) 12/18/18 09:21 Ur Specific [place] 1.038 (1.003-1.030) H 12/18/18 09:21 Urine Protein Negative mg/dL (NEGATIVE) 12/18/18 09:21 Urine Glucose (UA) 3+ mg/dL (Normal) H 12/18/18 09:21 Urine Ketones Negative mg/dL (NEGATIVE) 12/18/18 09:21 Urine Blood 2+ (NEGATIVE) H 12/18/18 09:21 Urine Nitrate Negative (NEGATIVE) 12/18/18 09:21 Urine Bilirubin Negative (NEGATIVE) 12/18/18 09:21 Urine Urobilinogen Normal mg/dL (0.2-1.0) 12/18/18 09:21 Ur Leukocyte Esterase 3+ [place]/uL (Negative) H 12/18/18 09:21 Urine WBC (Auto) 178 /hpf (0-5) H 12/18/18 09:21 Urine RBC (Auto) 58 /hpf (0-3) H 12/18/18 09:21 Ur Squamous Epith Cells 1 /hpf (0-5) 12/18/18 09:21 Urine Bacteria Rare (<OCC) 12/18/18 09:21 C. difficile Ag & Toxin Negative (NEGATIVE) 12/18/18 07:51 Blood Parasites Smear Negative (NEGATIVE) 12/21/18 19:44 - Hospital Course Hospital Course: Patient is for the discharge with the 75 9 days status post PICC line WBC 11.2 hemoglobin 11.1 creatinine 1.9 and discussed with the family also patient given metoprolol Norvasc and other medications patient admitted with abdominal pain and a UTI patient also seen by urologist patient had a WBC of 21 with very high lactate level patient got better patient is much better patient wants to go home patient advised to follow-up with the urologist for high PSA level Patient's family is better at bedside Moderate to high complexity of care. Plan of care discussed with patient &/or family & staff. Medications reviewed and reconciled. Labs reviewed. Vitals reviewed. Moderate to high complexity of care. Plan of care discussed with patient &/or f amily & staff. Medications reviewed and reconciled. Labs reviewed. Vitals reviewed. Discharge Exam - Head Exam Head Exam: ATRAUMATIC, NORMAL INSPECTION, NORMOCEPHALIC - Eye Exam Eye Exam: EOMI, Normal appearance, PERRL Pupil Exam: NORMAL ACCOMODATION, PERRL - ENT Exam ENT Exam: Normal Exam - Neck Exam Neck exam: Full Rom - Respiratory Exam Respiratory Exam: Decreased Breath Sounds, Rales - Cardiovascular Exam Cardiovascular Exam: REGULAR RHYTHM, +S1, +S2 - GI/Abdominal Exam GI & Abdominal Exam: Diminished Bowel Sounds, Distended - Rectal Exam Rectal Exam: Deferred - Exam Exam: NORMAL INSPECTION - Neurological Exam Neurological exam: Oriented x3 - Psychiatric Exam Psychiatric exam: Normal Mood - Skin Skin Exam: Intact Discharge Plan - Discharge Medications Prescriptions: Cefepime IV 2 gm in NS [Maxipime 2gm] 2 gm IVPB Q12H 9 Days bag amLODIPine [Norvasc] 5 mg PO DAILY 30 Days tab Metoprolol Succinate XL [Toprol XL] 75 mg PO DAILY 30 Days tab - Follow Up Plan Condition: CRITICAL Disposition: HOME/ ROUTINE Instructions: Constipation, Adult (DC), Acute Abdomen (Belly Pain), Adult (DC), Sepsis, Adult (DC), Small Bowel Obstruction (DC), Amlodipine, Cefepime, Metoprolol, Constipation (DC), Constipation (GEN), Acute Abdominal Pain (DC), Acute Abdominal Pain (GEN), Sepsis (DC), Sepsis (GEN) Additional Instructions: Follow up with Dr. Hermilo Randall in 1 week Follow up with Dr. Lowery in 2-3 weeks Follow up with Dr. Cifuentes in 2-3 weeks [facility] infusion nurse notified and updated on antibiotics order and pt discharged 12/25 Resume home medications New prescriptions Metoprolol 75mg PO daily Norvasc 5mg PO daily Cefepime 2GRAM IVPB x9days Call Dr. Hermilo Randall or go to the emergancy room if symptoms return or worsen Discuss with patient and family at the bedside who agree and verbalized understanding Referrals: Stevie Heard MD [Staff Provider] - Roni Kaufman MD [Staff Provider] - Victor M Lowery MD [Staff Provider] - Dustin Randall MD [Staff Provider] -
== END 2018-12-25 17:57 | disposition home or self-care (01) | DRG 871 ==
LOC: C.ER 21:53 → C.9I 12-18 01:59 → C.5S 12-21 06:32
PROVIDERS: ADMIT Internal Medicine Nephrology; ATTEND Internal Medicine Nephrology
PROC: 06HM33Z Insertion of Infusion Device into Right Femoral Vein, Percutaneous Approach (ICD-10-PCS; principal; 2018-12-18)
PROC: 05H933Z Insertion of Infusion Device into Right Brachial Vein, Percutaneous Approach (ICD-10-PCS; 2018-12-21)
PROC: B54MZZA Ultrasonography of Right Upper Extremity Veins, Guidance (ICD-10-PCS; 2018-12-21)
DX: A41.9 Sepsis, unspecified organism (principal); R65.21 Severe sepsis with septic shock; K56.7 Ileus, unspecified; N39.0 Urinary tract infection, site not specified; J98.11 Atelectasis; R79.89 Other specified abnormal findings of blood chemistry; E11.9 Type 2 diabetes mellitus without complications; D18.03 Hemangioma of intra-abdominal structures; H90.41 Sensorineural hearing loss, unilateral, right ear, with unrestricted hearing on the contralateral side; H93.11 Tinnitus, right ear; I11.0 Hypertensive heart disease with heart failure; I50.9 Heart failure, unspecified; J34.2 Deviated nasal septum; H92.01 Otalgia, right ear; K22.9 Disease of esophagus, unspecified; K44.9 Diaphragmatic hernia without obstruction or gangrene; M81.0 Age-related osteoporosis without current pathological fracture; R42 Dizziness and giddiness; N28.1 Cyst of kidney, acquired; N40.0 Benign prostatic hyperplasia without lower urinary tract symptoms; Z98.42 Cataract extraction status, left eye; Z98.41 Cataract extraction status, right eye